=== PATIENT | male | born 1970 | race Caucasian/White ===

== ENCOUNTER 2021-04-18 16:23 | Emergency (ER) | payer OTHER, SELFPAY ==
--- NOTE | ~2021-04-18 | CT_ITS ---
EXAMINATION: CT ABDOMEN AND PELVIS WITH CONTRAST CLINICAL INFORMATION: Abdominal pain with rebound tenderness COMPARISON: None TECHNIQUE: Multidetector volumetric images were obtained from the superior aspect of the liver through the pubic symphysis following administration 100 mL of Omnipaque 350 intravenous contrast. Sagittal and coronal reformatted images were obtained on the technologist's workstation. Oral contrast: No This CT examination was performed using dose optimization techniques as appropriate, variously including the following: *Automated exposure control *Adjustment of mA and/or kV according to patient size (this includes techniques or standardized protocols for targeted exams where dose is matched to indication/reason for exam; i.e. extremities or head) *Use of iterative reconstruction technique DLP: 1072 mGy-cm FINDINGS: LUNG BASES: The visualized lung bases are unremarkable aside from bibasilar atelectasis. LIVER, GALLBLADDER, AND BILIARY TREE: The liver is enlarged measuring 20 cm in greatest cephalocaudad dimension but is normal in shape and attenuation. No focal hepatic lesion or biliary ductal dilatation is present. The gallbladder is unremarkable with no evidence of radiopaque gallstones, gallbladder wall thickening, or obvious pericholecystic inflammatory changes. PANCREAS: Unremarkable. SPLEEN: The spleen is mildly enlarged at 14.7 cm in greatest length A small splenule is seen. ADRENAL GLANDS: Unremarkable. KIDNEYS AND URETERS: The kidneys are normal in size, shape, and attenuation. 2 small benign Bosniak class I renal cysts present at the lower pole the right kidney the largest measuring 1.3 cm. No worrisome renal masses are seen. No hydronephrosis, hydroureter, or calculi seen. No perinephric stranding. BLADDER: Unremarkable. GASTROINTESTINAL TRACT: There are some subtle mild inflammatory changes are present adjacent to the cecum centered around a rounded/ovoid fat density with enhancing rim. This may represent appendagitis or possibly diverticulitis without visible diverticula (favor the former). In any event, there is no free air or drainable fluid collections seen. The small and large bowel are otherwise unremarkable. The appendix is well seen and entirely unremarkable. ABDOMINAL WALL: No significant hernia is appreciated. LYMPH NODES: No lymphadenopathy. VASCULAR: Unremarkable. PELVIC VISCERA: Prostate and seminal vesicles normal. OSSEOUS STRUCTURES: Unremarkable. Some minimal degenerative changes are present. CT/CT abdomen pelvis w con IMPRESSION: Pericecal findings suggestive of epiploic appendagitis as described above. Incidentally noted is hepatosplenomegaly Fleischner guidelines were followed.
[2021-04-18 16:30] VITALS: BP 131/64; PULSE 71; RESP 18; TEMP 36.6; O2SAT 95; BMI 38.2
--- NOTE | 2021-04-18 17:25 | ED_ITS ---
HPI - Abdominal Pain General Chief Complaint: Abdominal Pain Stated Complaint: sharp abd pain Time Seen by Provider: 04/18/21 19:15 Source: patient Mode of arrival: ambulatory Limitations: no limitations History of Present Illness HPI narrative: 50-year-old male presents with right lower abdominal pain that started over 24 hours ago. States that he has had 1 episode of diarrhea. Does not report any fevers or chills but states that he cannot get comfortable. No prior history of abdominal surgery. MD elicited complaint: abdominal pain Pertinent past history: none Onset (ago): day(s) (1) Pain Consistency: constant Location: RLQ Severity: severe Pain scale (0-10): 9 Quality: aching Radiation: other (Umbilical) Migration to: periumbilical Exacerbating factors: movement Relieving factors: nothing Associated symptoms: diarrhea Related Data Previous Rx's Medication Instructions Recorded ibuprofen 600 mg tablet 600 mg PO Q6H PRN #90 tab 04/18/21 Allergies Allergy/AdvReac Type Severity Reaction Status Date / Time No Known Allergies Allergy Unknown unknown Unverified 10/28/19 15:44 [NO KNOWN ALLERGIES] Review of Systems Review of Systems Constitutional: No Weight loss, No Fever, No Chills, No Night Sweats, No Fati osito, No Malaise ENT/Mouth: No Hearing loss, No Ear Pain, No Nasal Congestion, No Sinus Pain, No Hoarseness, No sore throat, No Rhinorrhea, No Swallowing Difficulty Eyes: No Eye Pain, No Swelling, No Redness, No Foreign Body, No Discharge, No Vision Changes Cardiovascular: No Chest Pain, No SOB, No Dyspnea on Exertion, No Orthopnea, No Edema, No Palpitations Respiratory: No Cough, No Sputum, No Wheezing, No Smoke Exposure, No Dyspnea Gastrointestinal: No Nausea, no Vomiting, positive Diarrhea, positive abdominal Pain, No Hematochezia, No Melena Genitourinary: no irregular bleeding, No Dysuria, No Urinary Frequency, No Hematuria, No Urinary Incontinence, No Urgency, No Flank Pain, No Urinary Flow Changes, No Hesitancy Musculoskeletal: No joint pain, No Myalgias, No Joint Swelling Skin: No Skin Lesions, No rash Neuro: No Weakness, No Numbness, No Paresthesias, No Loss of Consciousness, No Dizziness, No Headache Psych: No Anxiety/Panic, No Depression, No SI/HI/AH/VH, No Social Issues Heme/Lymph: No Bruising, No Bleeding,No Lymphadenopathy Endocrine: No Polyuria, No Polydipsia, No Temperature Intolerance Yes all other systems are reviewed and are negative [facility] Past Medical History Attestation statement: The following information was validated with the patient. Source: old records reviewed Social History Social History Advance Directives: No Advance Directives Information Provided: No Physical Exam ED Vital Signs: Vital Signs - 24 hr 04/18/21 16:30 Temperature 98 F Pulse Rate 71 Respiratory Rate 18 Blood Pressure 131/64 Pulse Oximetry 95 BMI result Body Mass Index 38.2 Appearance: Alert. Oriented X3. No acute distress. Eyes: Pupils equal, round and reactive to light. EOMI. Sclera nonicteric. ENT: Pharynx normal. Moist mucous membranes. Neck: Normal inspection. Neck supple. No JVD. CVS: Normal heart rate and rhythm. Pulses normal. Respiratory: No respiratory distress. Breath sounds normal. Abdomen: Soft and positive McBurney, positive psoas and positive rebound tenderness. Morbid obesity Skin: Skin warm and dry. Normal skin color. Normal skin turgor. Extremities: No lower extremity edema. Moves all extremities against resistance. Gait well-balanced well coordinated. Neuro: No motor deficit. No sensory deficit. Cranial nerves 2-12 intact. Course Course Course Narrative: 50-year-old male presents with 24 hours of right lower abdominal pain. Patient is afebrile, appears nontoxic. Physical exam indicates positive McBurney, positive psoas and positive rebound tenderness. 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 Patient to CT scan prior to lab values, labs and cultures ordered. Pain management with morphine, Zofran and a L of fluid at this time. 17:[address] scan at this time. 18:52 CT scan indicates pericecal finding suggestive of epiploic appendagitis, no indication of appendicitis at this time. Detailed discussion with patient regarding findings. Plan of care is to discharge home with ibuprofen. Patient verbalized understanding of and agrees to plan of care to discharge home. Verbalized understanding of signs and symptoms indicating need for emergent intervention MDM - Abdominal Pain Differential Diagnosis Differential diagnosis: Likely abdominal pain, acute appendicitis, calculus of kidney, constipation, diverticulitis, mesenteric ischemia, pancreatitis, renal colic and small bowel obstruction Medical Records Attestation: I reviewed the patient's medical records. Lab Data Attestation: I reviewed the patient's lab results. Result diagrams: 04/18/21 17:37 04/18/21 17:36 Labs: Lab Results 04/18/21 04/18/21 04/18/21 Range/Units 17:36 17:36 17:36 WBC (4.8-10.8) X10*3/uL RBC (4.60-5.80) X10*6/uL Hgb (14.0-18.0) g/dl Hct (42.0-52.0) % MCV (80.0-98.0) fL MCH (27.0-33.0) pg MCHC (31.0-36.0) g/dl RDW (11.0-16.0) % Plt Count (160-400) X10*3/uL MPV (9.4-12.4) fL Immature Gran % (Auto) (0.0-0.4) % Neut % (Auto) (45-73) % Lymph % (Auto) (20-40) % [place] % (Auto) (2-11) % Eos % (Auto) (0-4) % Baso % (Auto) (0-2) % Lymph # (Auto) (1.2-4.9) X10*3/uL [place] # (Auto) (0.1-1.2) X10*3/uL Eos # (Auto) (0.0-0.4) X10*3/uL Baso # (Auto) (0.0-0.2) X10*3/uL Abs Immat Gran (auto) (0.00-0.03) X10*3/uL Absolute Neuts (auto) (2.0-8.3) x10*3/uL Absolute Nucleated RBC (0.0-0.012) X10*3/uL Nucleated RBC % (auto) (0.0-0.2) /100WBC PT 12.3 (9.9-13.0) SEC INR 1.1 (0.9-1.1) APTT 37.1 (24.1-38.0) SEC Sodium 144 (135-145) mmol/L Potassium 3.7 (3.3-5.1) mmol/L Chloride 108 (96-108) mmol/L Carbon Dioxide 26 (22-29) mmol/L Anion Gap 14 (12-20) BUN 18 H (9-16) mg/dL Creatinine 1.23 (0.5-1.4) mg/dL Estim Creat Clear Calc 98.2 Estimated GFR > 60 Random Glucose 112 (60-115) mg/dL Lactic Acid (0.5-2.0) mmol/L Calcium 8.9 (8.4-10.2) mg/dL Total Bilirubin 0.9 (0.0-1.0) mg/dL Direct Bilirubin 0.3 (0.0-0.5) mg/dL AST 15 (5-37) U/L ALT 19 (0-40) U/L Alkaline Phosphatase 91 (39-117) U/L Troponin I High Sens 7.2 (<3.5-35.0) ng/L Total Protein 6.9 (6.5-8.0) g/dL Albumin 4.2 (3.5-5.0) g/dL Lipase 13 (8-78) U/L 04/18/21 04/18/21 Range/Units 17:37 17:37 WBC 7.4 (4.8-10.8) X10*3/uL RBC 4.89 (4.60-5.80) X10*6/uL Hgb 13.6 L (14.0-18.0) g/dl Hct 42.5 (42.0-52.0) % MCV 86.9 (80.0-98.0) fL MCH 27.8 (27.0-33.0) pg MCHC 32.0 (31.0-36.0) g/dl RDW 13.3 (11.0-16.0) % Plt Count 224 (160-400) X10*3/uL MPV 10.5 (9.4-12.4) fL Immature Gran % (Auto) 0.3 (0.0-0.4) % Neut % (Auto) 61.3 (45-73) % Lymph % (Auto) 23.5 (20-40) % [place] % (Auto) 10.7 (2-11) % Eos % (Auto) 2.6 (0-4) % Baso % (Auto) 1.6 (0-2) % Lymph # (Auto) 1.7 (1.2-4.9) X10*3/uL [place] # (Auto) 0.8 (0.1-1.2) X10*3/uL Eos # (Auto) 0.2 (0.0-0.4) X10*3/uL Baso # (Auto) 0.1 (0.0-0.2) X10*3/uL Abs Immat Gran (auto) 0.02 (0.00-0.03) X10*3/uL Absolute Neuts (auto) 4.5 (2.0-8.3) x10*3/uL Absolute Nucleated RBC 0.000 (0.0-0.012) X10*3/uL Nucleated RBC % (auto) 0.0 (0.0-0.2) /100WBC PT (9.9-13.0) SEC INR (0.9-1.1) APTT (24.1-38.0) SEC Sodium (135-145) mmol/L Potassium (3.3-5.1) mmol/L Chloride (96-108) mmol/L Carbon Dioxide (22-29) mmol/L Anion Gap (12-20) BUN (9-16) mg/dL Creatinine (0.5-1.4) mg/dL Estim Creat Clear Calc Estimated GFR Random Glucose (60-115) mg/dL Lactic Acid 1.3 (0.5-2.0) mmol/L Calcium (8.4-10.2) mg/dL Total Bilirubin (0.0-1.0) mg/dL Direct Bilirubin (0.0-0.5) mg/dL AST (5-37) U/L ALT (0-40) U/L Alkaline Phosphatase (39-117) U/L Troponin I High Sens (<3.5-35.0) ng/L Total Protein (6.5-8.0) g/dL Albumin (3.5-5.0) g/dL Lipase (8-78) U/L Imaging Data CT scan - abdomen: Attestation: I personally reviewed and interpreted this imaging study as follows: Radiologist's impression: FINDINGS: LUNG BASES: The visualized lung bases are unremarkable aside from bibasilar atelectasis.? LIVER, GALLBLADDER, AND BILIARY TREE: The liver is enlarged measuring 20 cm in greatest cephalocaudad dimension but is normal in shape? and attenuation. No focal hepatic lesion or biliary ductal dilatation is present. The gallbladder is unremarkable with no evidence of radiopaque gallstones, gallbladder wall thickening, or obvious pericholecystic inflammatory changes.? PANCREAS: Unremarkable.? SPLEEN: The spleen is mildly enlarged at 14.7 cm in greatest length A small splenule is seen. ADRENAL GLANDS: Unremarkable.? KIDNEYS AND URETERS: The kidneys are normal in size, shape, and attenuation. 2 small benign Bosniak class I renal cysts present at the lower pole the right kidney the largest measuring 1.3 cm. No worrisome renal masses are seen. No hydronephrosis, hydroureter, or calculi seen. No perinephric stranding. ? BLADDER: Unremarkable.? GASTROINTESTINAL TRACT: There are some subtle mild inflammatory changes are present adjacent to the cecum centered around a rounded/ovoid fat density with enhancing rim. This may represent appendagitis or possibly diverticulitis without visible diverticula (favor the former). In any event, there is no free air or drainable fluid collections seen. The small and large bowel are otherwise unremarkable. The appendix is well seen and entirely unremarkable.? ABDOMINAL WALL: No significant hernia is appreciated.? LYMPH NODES: No lymphadenopathy. VASCULAR: Unremarkable. PELVIC VISCERA: Prostate and seminal vesicles normal.? OSSEOUS STRUCTURES: Unremarkable. Some minimal degenerative changes are present. CT/CT abdomen pelvis w con IMPRESSION: Pericecal findings suggestive of epiploic appendagitis as described above.? ? Incidentally noted is hepatosplenomegaly ? Fleischner guidelines were followed. ECG Data Attestation: I personally reviewed and interpreted this ECG as follows: ECG interpretation date: 04/18/21 ECG interpretation time: 18:02 Prior ECG tracings: available for review Interpretation: Vent. rate 59 BPM NV interval 200 ms QRS duration 90 ms QT/QTc 414/409 ms P-R-T axes 5 11 35 Sinus bradycardia Otherwise normal ECG No previous ECGs available Discharge Plan Discharge Clinical Impression: Epiploic appendagitis, Abdominal pain Patient Disposition: Home, Self-Care Instructions: Abdominal Pain (ED) Additional Instructions: You were evaluated for abdominal pain. CT scan of abdomen and pelvis with contrast indicates epiploic appendagitis. Please rest, drink plenty of fluids, and use Motrin 600 mg every 6 hours and Tylenol 650 mg every 6 hours as needed for pain management. If pain worsens, please return to the emergency department for evaluation. This could also be an early appendicitis. Your EKG is normal sinus rhythm. Your lab values are within normal limits. Follow-up with primary care physician this week. Thank you for choosing this emergency department for evaluation. Please follow-up with primary care physician as needed. Return to the emergency department for any new, concerning, or worsening symptoms. Prescriptions: New ibuprofen 600 mg tablet 600 mg PO Q6H PRN (Reason: fever or pain) Qty: 90 0RF Stand Alone Forms: Work/School Release
--- NOTE | 2021-04-18 17:26 | ECG_ITS ---
Test Reason : ABDOMINAL PAIN Blood Pressure : / mmHG Vent. Rate : 059 BPM Atrial Rate : 059 BPM P-R Int : 200 ms QRS Dur : 090 ms QT Int : 414 ms P-R-T Axes : 005 011 035 degrees QTc Int : 409 ms Sinus bradycardia Otherwise normal ECG No previous ECGs available Referred By: Yulia Garces Electronically Signed By:SARAH GOMEZ MD
[2021-04-18 17:43] LABS: MANUAL DIFF FLAG NO
[2021-04-18] MEDS: Morphine Sulfate 4 MG/ML CARTRIDGE IVPUSH (17:46)
[2021-04-18] MEDS: 0.9 % Sodium Chloride 1,000 ML 999 ML IVCONT (17:46)
[2021-04-18] MEDS: ondansetron HCL 4 MG/2 ML VIAL IVPUSH (17:46)
[2021-04-18] MEDS: iohexoL 350 MG/ML 100 ML INFUS..BTL IV (17:51)
[2021-04-18 17:56] LABS: INTERNATIONAL NORM RATIO 1.1 (0.9-1.1); Prothrombin Time 12.3 SEC (9.9-13.0)
[2021-04-18 17:58] LABS: Lactic Acid 1.3 mmol/L (0.5-2.0)
[2021-04-18 17:59] LABS: Partial Thromboplastin Time 37.1 SEC (24.1-38.0)
[2021-04-18 18:02] LABS: Basophils Absolute Auto 0.1 X10*3/uL (0.0-0.2); Basophils Percent Auto 1.6 % (0-2); Eosinophils Absolute Auto 0.2 X10*3/uL (0.0-0.4); Eosinophils Percent Auto 2.6 % (0-4); Hematocrit 42.5 % (42.0-52.0); Hemoglobin 13.6 g/dl (14.0-18.0); Imm Gran Abs Auto 0.02 X10*3/uL (0.00-0.03); Imm Gran Pct Auto 0.3 % (0.0-0.4); Lymphocytes Absolute Auto 1.7 X10*3/uL (1.2-4.9); Lymphocytes Percent Auto 23.5 % (20-40); Mean Corpuscular Hemoglobin 27.8 pg (27.0-33.0); Mean Corpuscular Volume 86.9 fL (80.0-98.0); Mean Platelet Volume 10.5 fL (9.4-12.4); Monocytes Absolute Auto 0.8 X10*3/uL (0.1-1.2); Monocytes Percent Auto 10.7 % (2-11); Neutrophils Absolute Auto 4.5 x10*3/uL (2.0-8.3); Neutrophils Percent Auto 61.3 % (45-73); Platelet Count 224 X10*3/uL (160-400); Red Blood Count 4.89 X10*6/uL (4.60-5.80); Red Cell Distribution Width 13.3 % (11.0-16.0); White Blood Count 7.4 X10*3/uL (4.8-10.8)
[2021-04-18 18:03] LABS: Alanine Aminotransferase 19 U/L (0-40); Albumin Level 4.2 g/dL (3.5-5.0); Alkaline Phosphatase 91 U/L (39-117); Anion Gap 14 (12-20); Aspartate Amino Transferase 15 U/L (5-37); Bilirubin Direct 0.3 mg/dL (0.0-0.5); Bilirubin Total 0.9 mg/dL (0.0-1.0); Blood Urea Nitrogen 18 mg/dL (9-16); Calcium 8.9 mg/dL (8.4-10.2); Carbon Dioxide 26 mmol/L (22-29); Chloride 108 mmol/L (96-108); Creatinine Clr Calc Pharmacy 98.2; Estimated Glomerular Filt Rate > 60; Glucose Random 112 mg/dL (60-115); Lipase 13 U/L (8-78); Potassium 3.7 mmol/L (3.3-5.1); Sodium 144 mmol/L (135-145); Total Protein 6.9 g/dL (6.5-8.0)
[2021-04-18 18:06] LABS: Troponin-I High Sensitivity 7.2 ng/L (<3.5-35.0)
== END 2021-04-18 19:32 | disposition home or self-care (01) ==
PROVIDERS: Nurse Practitioner Family; Emergency Provider Emergency Medicine Emergency Medical Services
DX: R10.31 Right lower quadrant pain (principal); K63.89 Other specified diseases of intestine; Z79.899 Other long term (current) drug therapy
CPT/HCPCS: 36415; 74177; 80048; 80076; 83605; 83690; 84484; 85025; 85610; 85730; 87040; 93005; 96361; 96374; 96375; 99284; J2270; J2405; Q9967

== ENCOUNTER 2022-10-07 22:15 | Emergency (ER) | payer OTHER, SELFPAY ==
--- NOTE | ~2022-10-07 | CT_ITS ---
EXAMINATION: CT ABDOMEN AND PELVIS WITH CONTRAST CLINICAL INFORMATION: Abdominal pain. COMPARISON: 04/18/2021 TECHNIQUE: Multidetector volumetric images were obtained from the superior aspect of the liver through the pubic symphysis following administration 85 mL of Omnipaque 350 intravenous contrast. Sagittal and coronal reformatted images were obtained on the technologist's workstation. Oral contrast: No This CT examination was performed using dose optimization techniques as appropriate, variously including the following: *Automated exposure control *Adjustment of mA and/or kV according to patient size (this includes techniques or standardized protocols for targeted exams where dose is matched to indication/reason for exam; i.e. extremities or head) *Use of iterative reconstruction technique DLP: 1072 mGy-cm FINDINGS: LUNG BASES: The visualized lung bases are unremarkable. LIVER, GALLBLADDER, AND BILIARY TREE: The liver is normal in size, shape, and attenuation. No focal hepatic lesion or biliary ductal dilatation is present. Gallbladder is contracted. No gallstone. No inflammation of the gallbladder. PANCREAS: Unremarkable. SPLEEN: Unremarkable. ADRENAL GLANDS: Unremarkable. KIDNEYS AND URETERS: The kidneys are normal in size, shape, and attenuation. No hydronephrosis, hydroureter, or calculi seen. No perinephric stranding. BLADDER: Unremarkable. GASTROINTESTINAL TRACT/ MESENTERY: There is subtle stranding in the mesenteric fat at the anterior abdomen with level the umbilicus. This is new since CAT scan 04/28/2021. Sagittal image 64/153 series the. This is nonspecific. Could be related to a mesenteritis with possible mesenteric fat infarct. This does lie adjacent to a small bowel loop at the anterior abdomen. This bowel loop is of normal caliber with no abnormal bowel wall thickening. A focal enterocolitis though not excluded. Inflammatory changes of the mesentery seen adjacent to the right colon on prior CAT scan 04/28/2021 has resolved. Large bowel loops are normal. Moderate volume of scattered stool in the colon. The appendix is not visualized. ABDOMINAL WALL: Small fat-containing bilateral Hernia. Small fat-containing umbilical hernia. LYMPH NODES: Normal. VASCULAR: Unremarkable. PELVIC VISCERA: Unremarkable. OSSEOUS STRUCTURES: Mild degenerative spondylosis spine. Vacuum disc normal present at L5-S1 CT/CT abdomen pelvis w IV con IMPRESSION: There is subtle stranding in the mesenteric fat at the anterior abdomen. This is new since CAT scan 04/28/2021. This is nonspecific. Could be related to a mesenteritis with possible mesenteric fat infarct. This does lie adjacent to a small bowel loop at the anterior abdomen. This bowel loop is of normal caliber with no abnormal bowel wall thickening. A focal enterocolitis though not excluded. Inflammatory changes of the mesentery seen on prior CAT scan 04/28/2021 has resolved. Fleischner guidelines were followed.
[2022-10-07 22:30] VITALS: BP 137/71; PULSE 64; RESP 20; TEMP 36.8; O2SAT 94; BMI 41.6
[2022-10-07 22:51] LABS: MANUAL DIFF FLAG NO
[2022-10-07 22:52] LABS: Basophils Absolute Auto 0.1 X10*3/uL (0.0-0.2); Basophils Percent Auto 1.5 % (0-2); Eosinophils Absolute Auto 0.2 X10*3/uL (0.0-0.4); Eosinophils Percent Auto 2.4 % (0-4); Hematocrit 40.4 % (42.0-52.0); Hemoglobin 13.1 g/dl (14.0-18.0); Imm Gran Abs Auto 0.02 X10*3/uL (0.00-0.03); Imm Gran Pct Auto 0.2 % (0.0-0.4); Lymphocytes Absolute Auto 1.9 X10*3/uL (1.2-4.9); Lymphocytes Percent Auto 23.2 % (20-40); Mean Corpuscular HGB Conc 32.4 g/dl (31.0-36.0); Mean Corpuscular Hemoglobin 27.4 pg (27.0-33.0); Mean Corpuscular Volume 84.5 fL (80.0-98.0); Mean Platelet Volume 10.3 fL (9.4-12.4); Monocytes Absolute Auto 0.9 X10*3/uL (0.1-1.2); Monocytes Percent Auto 10.4 % (2-11); Neutrophils Absolute Auto 5.1 x10*3/uL (2.0-8.3); Neutrophils Percent Auto 62.3 % (45-73); Platelet Count 198 X10*3/uL (160-400); Red Blood Count 4.78 X10*6/uL (4.60-5.80); Red Cell Distribution Width 14.1 % (11.0-16.0); White Blood Count 8.2 X10*3/uL (4.8-10.8)
[2022-10-07 23:06] LABS: Alanine Aminotransferase 18 U/L (0-40); Alkaline Phosphatase 91 U/L (39-117); Anion Gap 13 (12-20); Aspartate Amino Transferase 14 U/L (5-37); Bilirubin Direct 0.2 mg/dL (0.0-0.5); Bilirubin Total 0.5 mg/dL (0.0-1.0); Blood Urea Nitrogen 16 mg/dL (9-16); Carbon Dioxide 25 mmol/L (22-29); Chloride 109 mmol/L (96-108); Creatinine Clr Calc Pharmacy 126.6; Estimated Glomerular Filt Rate > 60; Glucose Random 108 mg/dL (60-115); Lipase 19 U/L (8-78); Potassium 3.7 mmol/L (3.3-5.1); Sodium 143 mmol/L (135-145); Total Protein 7.2 g/dL (6.5-8.0)
--- NOTE | 2022-10-07 23:29 | ED_ITS ---
HPI - General Adult General Chief complaint: Abdominal Pain Stated complaint: abdominal pain Time Seen by Provider: 10/07/22 23:14 Source: patient, family () and RN notes reviewed Mode of arrival: ambulatory Limitations: no limitations History of Present Illness HPI narrative: 52-year-old male presents for evaluation of abdominal pain. Patient reports he 1st felt the pain Kashif morning when trying to get out of bed, 3 days ago. The pain seemed to be in the left lower abdomen at that time Since then he has had worsening pain that appears to be rising up into his mid abdomen Patient states the pain is now 10/10 He has pain in his mid abdomen with bowel movements but no rectal pain He does not feel constipated Denies any nausea, vomiting, diarrhea Patient reports a history of umbilical hernia repair but no other abdominal surgeries Related Data Previous Rx's Medication Instructions Recorded ibuprofen 600 mg tablet 600 mg PO Q6H PRN fever or pain 04/18/21 #90 tabs oxycodone 5 mg tablet 5 mg PO Q6H PRN severe pain (scale 10/08/22 score 7-10) #14 tabs Allergies Allergy/AdvReac Type Severity Reaction Status Date / Time No Known Allergies Allergy Unknown unknown Verified 10/07/22 22:35 [NO KNOWN ALLERGIES] Review of Systems Constitutional: Constitutional: Denies chills, Denies fatigue and Denies fever(s) Cardiovascular: Cardiovascular: Denies chest pain Gastrointestinal: Gastrointestinal: Reports abdominal pain, Denies hematochezia, Denies constipation, Denies nausea and Denies vomiting Musculoskeletal: Musculoskeletal: Denies back pain Endocrine: Endocrine: Denies fatigue PMFSH Social History Social History Advance Directives: No Advance Directives Information Provided: Yes Physical Exam ED Vital Signs: Vital Signs - 24 hr 10/07/22 22:30 10/08/22 00:15 Temperature 98.2 F 98.0 F Pulse Rate 64 59 Respiratory Rate 20 18 Blood Pressure 137/71 143/81 H Pulse Oximetry 94 96 Oxygen Delivery Method Room Air Room Air BMI result Body Mass Index 41.6 Const General: healthy appearing, comfortable, no acute distress, alert and awake Nutritional Appearance: well nourished Orientation/consciousness: patient oriented x3 HENMT Head: Yes normocephalic and Yes atraumatic Eyes Eyelids: Yes eyelids normal Conjunctivae: conjunctivae normal Sclerae: sclerae normal Corneas: corneas normal Pupils: Equal, round and reactive pupils present EOM: EOMs intact bilaterally Neck Neck: Yes full ROM Resp Effort & Inspection: normal respiratory effort, able to speak in complete se ntences and not labored Cardio Rate: regular rate Rhythm: regular rhythm GI Palpation (GI): Soft to palpation, not firm, Tenderness to palpation present (GI) in the RLQ and periumbilically; not in the LLQ, not in the LUQ and not in the RUQ, Guarding due to palpation present (GI) other (periumbilical) and not rigid Skin General skin exam: no rashes or lesions noted and elasticity normal Neuro General: patient oriented x3 Cranial nerves: Yes Equal, round and reactive pupils present and Yes Bilaterally intact EOM present Cognition (Neuro): normal cognition Extrem Other: Moving all extremities well without any obvious deformities Course Reevaluation(s) Reevaluation #1: Discussed patient's CT scan results with him including the mesentery iritis and possible mesenteric fat infarct. The patient is to for discharge with symptomatic care. He will follow-up with surgery as an outpatient Time: 00:49 Medications Administered Discontinued Medications Generic Name Dose Route Start Last Admin Trade Name Freq PRN Reason Stop Dose Admin Sodium Chloride 1,000 mls @ 999 mls/hr 10/07/22 23:30 10/07/22 23:53 Ns IV 10/08/22 00:30 999 mls/hr .Q1H1M MARIELOS Administration Iohexol 85 ml 10/07/22 23:58 10/07/22 23:59 Iohexol 350 Mg/Ml 100 Ml Infus..Btl IV 10/07/22 23:59 85 ml ONCE ONE Administration Morphine Sulfate 4 mg 10/07/22 23:24 10/07/22 23:54 Morphine Sulfate 4 Mg/Ml Cartridge IVPUSH 10/07/22 23:25 4 mg ONCE ONE Administration Protocol Ondansetron HCl 4 mg 10/07/22 23:24 10/07/22 23:53 Ondansetron Hcl 4 Mg/2 Ml Vial IVPUSH 10/07/22 23:25 Not Given ONCE ONE Medical Decision Making Medical Decision Making MDM Narrative: 52-year-old male presents for evaluation of abdominal pain. His labs are reassuring. However he is quite tender on exam in guarding to palpation. Will get a CT scan of the abdomen pelvis to evaluate for internal/low pathology including for your/perforation. Differential Diagnosis Differential Diagnoses: The differential diagnosis associated with the presentation includes Umbilical hernia Inguinal hernia Acute appendicitis Ruptured appendicitis Constipation Bowel obstruction Ileus Pancreatitis Admission/Observation Consideration of admission/observation: Escalation of care including admission/observation considered Patient presenting with severe abdominal pain with concern for surgical pathology. CT scan ultimately showed no significant acute findings warranting admission Lab Data MDM Lab Attestation statement: I reviewed the patient's lab results. No leukocytosis, mild anemia with a hemoglobin of 13.1 which is consistent his recent baseline. Patient has a chloride of 109, just above normal, but otherwise no electrolyte abnormalities normal renal function 10/07/22 22:44 10/07/22 22:44 Labs: Lab Results 10/07/22 10/07/22 Range/Units 22:44 22:44 WBC 8.2 (4.8-10.8) X10*3/uL RBC 4.78 (4.60-5.80) X10*6/uL Hgb 13.1 L (14.0-18.0) g/dl Hct 40.4 L (42.0-52.0) % MCV 84.5 (80.0-98.0) fL MCH 27.4 (27.0-33.0) pg MCHC 32.4 (31.0-36.0) g/dl RDW 14.1 (11.0-16.0) % Plt Count 198 (160-400) X10*3/uL MPV 10.3 (9.4-12.4) fL Immature Gran % (Auto) 0.2 (0.0-0.4) % Neut % (Auto) 62.3 (45-73) % Lymph % (Auto) 23.2 (20-40) % [place] % (Auto) 10.4 (2-11) % Eos % (Auto) 2.4 (0-4) % Baso % (Auto) 1.5 (0-2) % Lymph # (Auto) 1.9 (1.2-4.9) X10*3/uL [place] # (Auto) 0.9 (0.1-1.2) X10*3/uL Eos # (Auto) 0.2 (0.0-0.4) X10*3/uL Baso # (Auto) 0.1 (0.0-0.2) X10*3/uL Abs Immat Gran (auto) 0.02 (0.00-0.03) X10*3/uL Absolute Neuts (auto) 5.1 (2.0-8.3) x10*3/uL Absolute Nucleated RBC 0.000 (0.0-0.012) X10*3/uL Nucleated RBC % (auto) 0.0 (0.0-0.2) /100WBC Sodium 143 (135-145) mmol/L Potassium 3.7 (3.3-5.1) mmol/L Chloride 109 H (96-108) mmol/L Carbon Dioxide 25 (22-29) mmol/L Anion Gap 13 (12-20) BUN 16 (9-16) mg/dL Creatinine 0.92 (0.5-1.4) mg/dL Estim Creat Clear Calc 126.6 Estimated GFR > 60 Random Glucose 108 (60-115) mg/dL Calcium 9.0 (8.4-10.2) mg/dL Total Bilirubin 0.5 (0.0-1.0) mg/dL Direct Bilirubin 0.2 (0.0-0.5) mg/dL AST 14 (5-37) U/L ALT 18 (0-40) U/L Alkaline Phosphatase 91 (39-117) U/L Total Protein 7.2 (6.5-8.0) g/dL Albumin 4.0 (3.5-5.0) g/dL Lipase 19 (8-78) U/L Radiology Impression Discussion of test interpretation with radiology: I have reviewed the radiologist's reading. Radiologist Impression: Subtle stranding in the mesenteric fat at the anterior abdomen. This is new since April of 2021. This could be related to mesenteritis with possible mesenteric fat infarct. 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 There is some inflammation in the mesenteric fatty tissue was in your abdominal pain. You may continue to use Advil or Tylenol as needed for pain You may use oxycodone for more severe, breakthrough pain Return for new or worsening symptoms, especially if you have severe, intractable abdominal pain that does not improve, if you are unable to use the bathroom or passed gas or if you develop a fever He may follow-up with General surgery Dr. Philip as an outpatient Prescriptions: New oxycodone 5 mg tablet 5 mg PO Q6H PRN (Reason: severe pain (scale score 7-10)) Qty: 14 0RF Rx Instructions: Partial Fill upon patient request. No Action ibuprofen 600 mg tablet 600 mg PO Q6H PRN (Reason: fever or pain) Qty: 90 0RF
[2022-10-07] MEDS: 0.9 % Sodium Chloride 1,000 ML 999 ML IV (23:53)
[2022-10-07] MEDS: Morphine Sulfate 4 MG/ML CARTRIDGE IVPUSH (23:54)
[2022-10-07] MEDS: iohexoL 350 MG/ML 100 ML INFUS..BTL 85 ML IV (23:59)
[2022-10-08 00:15] VITALS: BP 143/81; PULSE 59; RESP 18; TEMP 36.7; O2SAT 96
== END 2022-10-08 01:44 | disposition home or self-care (01) ==
PROVIDERS: Emergency Provider Emergency Medicine
DX: K65.4 Sclerosing mesenteritis (principal); R10.30 Lower abdominal pain, unspecified; Z79.899 Other long term (current) drug therapy
CPT/HCPCS: 36415; 74177; 80048; 80076; 83690; 85025; 96374; 99284; J2270; Q9967

== ENCOUNTER 2023-02-21 17:20 | Emergency (ER) | payer OTHER, SELFPAY ==
[2023-02-21 17:29] VITALS: BP 118/76; PULSE 66; RESP 16; TEMP 36.9; O2SAT 95; BMI 43.3
--- NOTE | 2023-02-21 17:29 | ED_ITS ---
HPI - Ear Problem General Chief complaint: Wound/Laceration Stated complaint: 3-4 sm/ large tumor lumps in R ear? Time Seen by Provider: 02/21/23 17:38 Source: patient Mode of arrival: ambulatory Limitations: no limitations History of Present Illness HPI Narrative: Patient is a 52-year-old male who presents emergency department for evaluation of painful lumps to occiput, multiple spreading across scalp. Denies any active drainage. Denies headache/neck pain/neck stiffness. Denies ear pain. Related Data Previous Rx's Medication Instructions Recorded ibuprofen 600 mg tablet 600 mg PO Q6H PRN fever or pain 04/18/21 #90 tabs oxycodone 5 mg tablet 5 mg PO Q6H PRN severe pain (scale 10/08/22 score 7-10) #14 tabs cephalexin 500 mg capsule 500 mg PO QID #28 caps 02/21/23 doxycycline hyclate 100 mg capsule 100 mg PO BID #14 caps 02/21/23 naproxen 500 mg tablet 500 mg PO BID PRN pain #10 tabs 02/21/23 Allergies Allergy/AdvReac Type Severity Reaction Status Date / Time No Known Allergies Allergy Unknown unknown Verified 10/07/22 22:35 [NO KNOWN ALLERGIES] Review of Systems 2 Review of Systems: Yes all other systems are reviewed and are negative PMFSH Past Medical History Attestation statement: The following information was validated with the patient. Source: old records reviewed Onset Date is defined in the Problem List Problems that require an onset date and time if occurred within 24 hrs of arrival to the ED Aortic Dissection and Rupture; Neurologic impairment; Cardiopulmonary Arrest; Endotracheal Intubation; Insertion or Replacement of Mechanical Circulatory Assist Device Physical Exam 2 Vital Signs: Appearance: Alert.?Oriented to person, place and time. No acute distress.?Normal affect. Eyes: Pupils equal, round and reactive to light.? ENT: Pharynx normal.??TM normal bilaterally. External ear canals within normal limits. Neck: Normal inspection.? Neck supple.??No cervical lymphadenopathy. CVS: Heart sounds normal. Normal heart rate and rhythm.? Pulses normal.?? Respiratory: No respiratory distress.? Lung sounds clear to auscultation bilaterally?? Skin: Skin warm and dry.? Normal skin color.? Lesions to the scalp, flat dry macules to the upper occipital/parietal region. Lower occipital region with tender nodules, non fluctuant. Extremities: No lower extremity edema.? Neuro: Moves all extremities spontaneously. Sensation intact bilaterally. CN II- XII intact. No focal neuro deficits. Ambulates with normal steady gait. Medical Decision Making Medical Decision Making [facility] Narrative: Patient is a 52-year-old male who presents emergency department for evaluation of painful lumps to the scalp as per HPI. Upon physical examination appears most consistent with a folliculitis, not consistent with any fluctuance or abscess that would be amenable to draining. There is no vesicular nature to this, at this time have a lower suspicion for herpes zoster, examination of the ears unremarkable not consistent with Carloz Franklin. Discussed conservative treatment in addition to course of antibiotics with cephalexin and doxycycline. Advised outpatient follow-up with primary care provider. Discussed worrisome signs and symptoms that would warrant re-evaluation in the emergency department. All questions answered. Differential Diagnosis Differential Diagnoses: The differential diagnosis associated with the presentation includes (See narrative above) Admission/Observation Consideration of admission/observation: Escalation of care including admission/observation considered Prescription Management I considered prescription management with: Antibiotic Discharge Plan Discharge Clinical Impression: Folliculitis Patient Disposition: Home, Self-Care Instructions: Folliculitis (ED) Additional Instructions: Be sure to cleanse your hair/scalp at least once daily with shampoo and water. Thoroughly rinse. If you develop new or worsening symptoms or concerns you may return back to the emergency department. Complete the entire course of antibiotics as prescribed. Follow-up with your primary care provider. Prescriptions: New doxycycline hyclate 100 mg capsule 100 mg PO BID Qty: 14 0RF cephalexin 500 mg capsule 500 mg PO QID Qty: 28 0RF naproxen 500 mg tablet 500 mg PO BID PRN (Reason: pain) Qty: 10 0RF No Action ibuprofen 600 mg tablet 600 mg PO Q6H PRN (Reason: fever or pain) Qty: 90 0RF oxycodone 5 mg tablet 5 mg PO Q6H PRN (Reason: severe pain (scale score 7-10)) Qty: 14 0RF Rx Instructions: Partial Fill upon patient request. Referrals: Vahid Vargas III, MD [Primary Care Provider] - Discharge Date/Time: 02/21/23 17:56
--- NOTE | 2023-02-21 17:54 | PC.NURSE ---
Evaluated by PA, cleared for dc home with prescriptions.
== END 2023-02-21 17:56 | disposition home or self-care (01) ==
PROVIDERS: Emergency Provider Student in an Organized Health Care Education/Training Program; PCP Internal Medicine
DX: L73.9 Follicular disorder, unspecified (principal)
CPT/HCPCS: 99282; 99283

== ENCOUNTER 2023-06-05 08:16 | Outpatient (AMB) | payer OTHER, SELFPAY ==
[2023-06-05 09:30] VITALS: BP 140/90; PULSE 56; TEMP 36.4; O2SAT 97; BMI 43.1
--- NOTE | 2023-06-05 09:30 | MHC.OFFWIV ---
Intake Vital Signs 06/05/23 09:30 Height 5 ft 10.5 in Weight 305 lb BMI 43.1 BP 140/90 H Blood Pressure Location Lt brachial Position Sitting Pulse 56 Pulse Source Pulse Oximeter Temp 97.6 F Temp Source Temporal Artery Scan Pulse Oximetry (%) 97 Oxygen Delivery Method Room Air Intake Visit Reasons: EP fell down stairs home tailbone back pain Intake Note: pt is here today for fell down stairs started yesterday Patient Tobacco Use Status: Never used Tobacco Allergies No Known Allergies [NO KNOWN ALLERGIES] Allergy (Unknown, Verified 06/05/23 09:34) unknown Do you need a note to return to daycare/school/sports/work: Yes HPI HPI Comments History of Present Illness Details 53 y/o male patient who presents to walk in clinic with c/o tail bone pain since yesterday. Pt fell down the stairs yesterday at home. [facility] Social History Patient Tobacco Use Status: Never used Tobacco Review of Systems Const All systems reviewed & are unremarkable except as noted in HPI and below Physical Exam Vital Signs: Last Vital Signs Temp 97.6 F 06/05/23 09:30 Pulse 56 06/05/23 09:30 BP 140/90 H 06/05/23 09:30 Pulse Ox 97 06/05/23 09:30 Oxygen Delivery Method Room Air 06/05/23 09:30 BMI result Body Mass Index 43.1 Const General: comfortable and no acute distress Nutritional Appearance: obese Orientation/consciousness: patient oriented x3 General: Yes no CVA tenderness Back/Spine/Pelvis Back: no CVA tenderness Cervical Spine: cervical ROM normal Thoracic/Lumbar Spine: thoraco-lumbar ROM normal Pelvis: no pain with anterior-posterior compression Sacrum: no erythema, no swelling, tenderness midline and No sacral edema Coccyx: no swelling and Coccyx tenderness present on direct palpation Neuro General: patient oriented x3, gait normal and moves all extremities Psych Speech and movement: Normal speech and movement present Assessment & Plan Assessment & Plan (1) Coccyx pain: Code(s): M53.3 - Sacrococcygeal disorders, not elsewhere classified Plan: - Warm/ice Pads - Use soft cushion when sitting - Avoid sitting down for prolonged time. - Ibuprofen for pain relief. Medications: Discontinued oxycodone Partial Fill upon patient request. Discontinued Reason: Stopped on Transfer 5 mg PO Q6H PRN 14 tabs 0RF severe pain (scale score 7-10) cephalexin Discontinued Reason: Stopped on Transfer 500 mg PO QID 28 caps 0RF doxycycline hyclate Discontinued Reason: Stopped on Transfer 100 mg PO BID 14 caps 0RF naproxen Discontinued Reason: Patient no longer taking 500 mg PO BID PRN 10 tabs 0RF pain Coding Level of Care Code Est Pt Level 3 (35613) Diagnoses Coccyx pain M53.3 Time Spent (min) 15
== END 2023-06-05 11:17 | disposition home or self-care (01) ==
PROVIDERS: PCP Internal Medicine; Visit Provider Nurse Practitioner Family
DX: M53.3 Sacrococcygeal disorders, not elsewhere classified (principal)
CPT/HCPCS: 99213

== ENCOUNTER 2023-08-19 08:41 | Outpatient (AMB) | payer OTHER, SELFPAY ==
[2023-08-19 09:01] VITALS: BP 152/90; PULSE 83; TEMP 36.6; O2SAT 96; BMI 44.3
--- NOTE | 2023-08-19 09:01 | AM.OFFWIN_ITS ---
Intake Vital Signs 08/19/23 09:01 Height 5 ft 10.5 in Weight 313 lb 4 oz BMI 44.3 BP 152/90 H Blood Pressure Location Rt brachial Position Sitting Pulse 83 Pulse Source Pulse Oximeter Temp 97.9 F Temp Source Temporal Artery Scan Pulse Oximetry (%) 96 Oxygen Delivery Method Room Air Intake Visit Reasons: lower back pain since a fall Intake Note: pt is here for low back pain due to fall Patient Tobacco Use Status: Never used Tobacco Allergies No Known Allergies [NO KNOWN ALLERGIES] Allergy (Unknown, Verified 08/19/23 09:01) unknown Do you need a note to return to daycare/school/sports/work: No HPI HPI Comments History of Present Illness Details 53-year-old male presents today complain ing of low back pain after suffering a fall directly on his buttocks while playing with his grandkids. He states he is having pain directly over his lumbar spine but denies any radiating pain in his paraspinous musculature into his buttocks or lower extremities. [facility] Social History Patient Tobacco Use Status: Never used Tobacco Review of Systems Const All systems reviewed & are unremarkable except as noted in HPI and below Eyes Reports no additional complaints ENT Reports no additional complaints Card Reports no additional complaints Resp Reports no additional complaints GI Reports no additional complaints Reports no additional complaints Musc Reports back pain and Reports stiffness Physical Exam Vital Signs: BMI result Body Mass Index 44.3 General: Yes no CVA tenderness Back/Spine/Pelvis Back: no CVA tenderness Thoracic/Lumbar Spine: straight leg raise negative bilaterally, bend over test abnormal and lumbar spinal tenderness at L4 and at L5 Neuro General: Normal light touch and pain sensation Extrem Right lower extremity: normal to inspection Left lower extremity: normal to inspection Results Reviewed Results Reviewed: X-ray of the lumbar spine shows degenerative changes L4-5. No compression fracture noted Assessment & Plan Assessment & Plan (1) Low back pain: Code(s): M54.50 - Low back pain, unspecified Plan Medrol Dosepak and muscle relaxer was ordered. The patient will go to the emergency room if he develops incontinence or weakness in his lower extremities. He has advised not to drive on the mild muscle relaxer. Follow up with his PCP Medications: New cyclobenzaprine 5 mg PO Q12H 10 tabs 0RF methylprednisolone (Medrol (Hi)) PO PER PKG DIR for 6 days 21 ea 0RF Coding Level of Care Code Est Pt Level 4 (03018) Diagnoses Low back pain M54.50
== END 2023-08-19 10:38 | disposition home or self-care (01) ==
PROVIDERS: PCP Internal Medicine; Visit Provider Physician Assistant Medical
DX: M54.50 Low back pain, unspecified (principal)
CPT/HCPCS: 99214

== ENCOUNTER 2023-08-19 09:09 | Outpatient (REF) | payer OTHER, SELFPAY ==
--- NOTE | ~2023-08-19 | XR_ITS ---
EXAMINATION: XR LUMBOSACRAL SPINE CLINICAL INFORMATION: Low back pain COMPARISON: None available. TECHNIQUE: Three views of the lumbosacral spine. FINDINGS: 5 nonrib-bearing lumbar-type vertebral bodies. No acute visible fracture or dislocation. Multilevel degenerative changes disc space narrowing, endplate sclerosis, osteophyte formation, and facet arthropathy. Vertebral body heights and disc spaces are maintained. Posterior elements are intact. Paraspinal soft tissues are unremarkable. Bowel gas is unremarkable. XR/XR lumbar spine 2-3V IMPRESSION: 1. No acute visible fracture or dislocation. 2. Multilevel degenerative changes.
== END 2023-08-19 09:10 | disposition home or self-care (01) ==
LOC: HO.HMGCX 09:09
PROVIDERS: PCP Internal Medicine; Visit Provider Physician Assistant Medical
DX: M54.50 Low back pain, unspecified (principal)
CPT/HCPCS: 72100

== ENCOUNTER 2023-08-21 10:02 | Outpatient (AMB) | payer OTHER, SELFPAY ==
[2023-08-21 10:06] VITALS: BP 128/84; PULSE 76; TEMP 36.9; O2SAT 98; BMI 44.1
--- NOTE | 2023-08-21 10:06 | AM.OFFWIN_ITS ---
Intake Vital Signs 3 08/21/23 10:06 Height 5 ft 10.5 in Weight 312 lb BMI 44.1 BP 128/84 Blood Pressure Location Rt brachial Position Sitting Pulse 76 Pulse Source Pulse Oximeter Temp 98.4 F Temp Source Oral Pulse Oximetry (%) 98 Oxygen Delivery Method Room Air Intake Visit Reasons: EP ?Cyst draining Intake Note: pt here c/o cyst,tailbone. Ruptured Patient Tobacco Use Status: Never used Tobacco Allergies No Known Allergies [NO KNOWN ALLERGIES] Allergy (Unknown, Verified 08/21/23 10:06) unknown Do you need a note to return to daycare/school/sports/work: No PFSH Social History Patient Tobacco Use Status: Never used Tobacco Review of Systems Const All systems reviewed & are unremarkable except as noted in HPI and below Physical Exam Vital Signs: Last Vital Signs Temp 98.4 F 08/21/23 10:06 Pulse 76 08/21/23 10:06 BP 128/84 08/21/23 10:06 Pulse Ox 98 08/21/23 10:06 Oxygen Delivery Method Room Air 08/21/23 10:06 BMI result Body Mass Index 44.1 Const General: no acute distress and poor hygiene (Poor hygiene with foul body odor); No comfortable Nutritional Appearance: obese Orientation/consciousness: patient oriented x3 Skin Lesions: lesion noted (In between Buttocks, medium size Abscess with yellow discharge) Neuro General: patient oriented x3, gait normal and moves all extremities Extrem Upper/lower leg/hip images: 2 1. Medium size Abscess with yellow discharge, Severe body odor Psych Speech and movement: Normal speech and movement present Assessment & Plan Assessment & Plan (1) Folliculitis: Code(s): L73.9 - Follicular disorder, unspecified Plan: Apply warm compress to facilitate Drainage Take Abx as directed Acetaminophen or Ibuprofen for pain relief Keep the area dry and clean F/U with PCP. Medications: New 2 doxycycline hyclate 100 mg PO BID 14 days 28 caps 0RF L73.9 - Follicular disorder, unspecified ibuprofen 800 mg PO Q8H 60 tabs 0RF L73.9 - Follicular disorder, unspecified cephalexin 500 mg PO BID 10 days 20 caps 0RF L73.9 - Follicular disorder, unspecified Coding Level of Care Code Est Pt Level 3 (37192) Diagnoses Folliculitis L73.9 Time Spent (min) 15
== END 2023-08-21 11:05 | disposition home or self-care (01) ==
PROVIDERS: PCP Internal Medicine; Visit Provider Nurse Practitioner Family
DX: L73.9 Follicular disorder, unspecified (principal)
CPT/HCPCS: 99213

== ENCOUNTER → 2023-11-06 07:55 | Outpatient (BNVA) | payer OTHER, SELFPAY | PROVIDERS: PCP Internal Medicine; Visit Provider Physician Assistant | DX: S39.012A Strain of muscle, fascia and tendon of lower back, initial encounter (principal); X50.1XXA Overexertion from prolonged static or awkward postures, initial encounter; R26.89 Other abnormalities of gait and mobility | CPT/HCPCS: 99203 ==

== ENCOUNTER → 2023-11-13 08:51 | Outpatient (BNVA) | payer OTHER, SELFPAY | PROVIDERS: PCP Internal Medicine; Visit Provider Physician Assistant | DX: S39.012D Strain of muscle, fascia and tendon of lower back, subsequent encounter (principal); X50.1XXD Overexertion from prolonged static or awkward postures, subsequent encounter | CPT/HCPCS: 99213 ==

== ENCOUNTER → 2024-04-14 08:23 | Outpatient (BNVA) | payer OTHER, SELFPAY | PROVIDERS: PCP Internal Medicine; Visit Provider Internal Medicine | DX: S63.502A Unspecified sprain of left wrist, initial encounter (principal); S80.02XA Contusion of left knee, initial encounter; S80.212A Abrasion, left knee, initial encounter; W00.0XXA Fall on same level due to ice and snow, initial encounter; Z23 Encounter for immunization | CPT/HCPCS: 73110; 73562; 90715; 99203 ==

== ENCOUNTER → 2024-04-16 07:58 | Outpatient (BNVA) | payer OTHER, SELFPAY | PROVIDERS: PCP Internal Medicine; Visit Provider Internal Medicine | DX: S63.502A Unspecified sprain of left wrist, initial encounter (principal); S80.02XA Contusion of left knee, initial encounter; S80.212A Abrasion, left knee, initial encounter; W00.0XXA Fall on same level due to ice and snow, initial encounter | CPT/HCPCS: 99213 ==

== ENCOUNTER → 2024-04-19 11:13 | Outpatient (BNVA) | payer OTHER, SELFPAY | PROVIDERS: PCP Internal Medicine; Visit Provider Internal Medicine | DX: S80.02XA Contusion of left knee, initial encounter (principal); W00.0XXA Fall on same level due to ice and snow, initial encounter | CPT/HCPCS: 99213 ==

== ENCOUNTER → 2024-04-30 07:56 | Outpatient (BNVA) | payer OTHER, SELFPAY | PROVIDERS: PCP Internal Medicine; Visit Provider Internal Medicine | DX: S80.02XA Contusion of left knee, initial encounter (principal); W00.0XXA Fall on same level due to ice and snow, initial encounter | CPT/HCPCS: 99213 ==

== ENCOUNTER → 2024-05-07 11:07 | Outpatient (BNVA) | payer OTHER, SELFPAY | PROVIDERS: PCP Internal Medicine; Visit Provider Internal Medicine | DX: S80.02XA Contusion of left knee, initial encounter (principal); W00.0XXA Fall on same level due to ice and snow, initial encounter; Z02.79 Encounter for issue of other medical certificate | CPT/HCPCS: 99213 ==

== ENCOUNTER 2024-05-14 11:59 | Outpatient (RCR) | payer OTHER, SELFPAY ==
--- NOTE | 2024-04-23 13:56 | MHC.PT.EP ---
[facility] [place] Office [place] Office [place] Office [address] [phone] F: [phone] F: [phone] F: [phone] F: [phone] Physical Therapy Plan of Care Date of Evaluation: 04/22/24 Date of Surgery: n/a Diagnosis: left knee injury/contusion Assessment: Pt is a 53 yo M who was referred to physical therapy for acute L knee contusion following a fall at his work 04/14/24. 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 Patient reports he has most difficulty with standing, walking, stair negotiation, and prolonged positions (sitting/standing). Patient presents with L decreased ROM, decreased knee/hip strength, increased HS muscle tightness, and impaired gait pattern. Patient is a good candidate for skilled PT 2x a week for 4 weeks to increase improve functional mobility, LE strength, and ROM. 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 Manual therapy to restore motion and function. Therapeutic exercise to improve strength and flexibility. Neuromuscular re-education for posture and balance. Therapeutic activities to return to functional activities of daily living. Electronically signed by: Rossi Ibarra, PT, DPT Please sign and return to therapist. Thank you for your referral.
--- NOTE | 2024-06-30 09:43 | MHC.PT.DC ---
[facility] [place] Office [place] Office [place] Office [address] Hedy Betancur [address] [phone] F: [phone] F: [phone] F: [phone] F: [phone] Physical Therapy Discharge Report Diagnosis: left knee injury/contusion Date of Surgery: n/a Date of Evaluation: 04/22/24 Date of Discharge: 06/30/24 Treatments to Date: 5 Cancellations to Date: 3 No Shows to Date: 1 Discharge Status: Visit Non-compliance Discharge Summary: Pt was seen for skilled PT from 04/22/24-05/14/24. His last attended appointment was 05/14/24. He has had 3 cancellations throughout plan of care and a no show for his last scheduled appointment. He is being D/C from skilled PT as he has not attended or called to reschedule in > 30 days. Pt current level of function unknown at this time Electronically signed by: Rossi Ibarra, PT, DPT Please sign and return to therapist. Thank you for your referral.
== END 2024-06-30 09:42 | disposition home or self-care (01) ==
LOC: HO.PT 11:59
PROVIDERS: PCP Internal Medicine; Visit Provider Internal Medicine
DX: S80.02XD Contusion of left knee, subsequent encounter (principal); X58.XXXD Exposure to other specified factors, subsequent encounter
CPT/HCPCS: 97110; 97140; 97161; 97530

== ENCOUNTER 2024-06-08 08:10 | Outpatient (AMB) | payer OTHER, SELFPAY ==
--- OUTSIDE RECORDS SUMMARY | 2024-06-08 08:23 | XMS_ITS | Clinical Summary ---
Author Organization 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 Name Role Phone Unavailable Primary Care Provider Unavailabl e Social History Tobacco Use Types Packs/Day Years Used Date Smoking Tobacco: Never Assessed Sex and Gender Information Value Date Recorded Sex Assigned at Not on file Legal Sex Male 2:23 PM EDT Gender Identity Not on file Sexual Orientation Not on file Plan of Treatment Health Maintenance Due Date Last Done Comments Hepatitis B Vaccine (1 of 3 - 19+ 3-dose series) 05/12 Colorectal Cancer Screening: Annual FOBT 2018 Colorectal Cancer Screening: Colonoscopy 2018 Colorectal Cancer Screening: Sigmoidoscopy 2018 Pneumococcal Vaccine: 50+ Years (1 of 1 - PCV) 020 Influenza Vaccine (Season Ended) 2024 Insurance [employer]
--- OUTSIDE RECORDS SUMMARY | 2024-06-08 08:23 | XMS_ITS | Clinical Summary ---
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 Name Role Phone Ann-Marie Gross MD Primary Care Provider [phone] Social History Tobacco Use Types Packs/Day Years Used Date Smoking Tobacco: Never Assessed Sex and Gender Information Value Date Recorded Sex Assigned at Not on file Gender Identity Not on file Sexual Orientation Not on file Job Start Date Occupation Industry Not on file Not on file Not on file Plan of Treatment Health Maintenance Due Date Last Done Comments Hepatitis B Vaccines (1 of 3 - 3-dose series) 1969 Hepatitis C Screening 1969 COVID-19 Vaccine (#1) 1969 Depression Screening 1981 Preventative Health Evaluation 05/13/1987 Colon Cancer Screening (Colonoscopy) 2014 Shingrix-Zoster Vaccine (1 o f 2) 05/13/2019 Influenza Vaccine (#1) 2023 5, 11/18/2013, 10/19/2010 DTap / Tdap / Td (4 - Td or Tdap) 11/19/2023 11/18/2013, 10/19/2010, 06/12/1999 Pneumococcal Vaccine Aged Out No long er eligible based on patient's age to complete this topic RSV Ped < 20 months Aged Out No longe r eligible based on patient's age to complete this topic Care Teams Shrimp Cleaner Relationship Specialty Start Date End Date Ann-Marie Gross MD PCP - General Internal Medicine 06/20/20
--- OUTSIDE RECORDS SUMMARY | 2024-06-08 08:23 | XMS_ITS | Data Portability ---
Author Organization [place] - [facility], Allergy Address [address] [address] Care Team Providers Care Reference And Instruction Librarian Name Role Phone LASHANDA DIETZ Referring Provider Assessment Encounter Date Assessment Date Assessment LastModified by Organization Details LastModified Time 03/23/2024 03/23/2024 53-year-old male status post septoplasty [place] [address] Padilla presents for evaluation of chronic right-sided nasal congestion. He feels the congestion worsened after his septoplasty. It is worse during the day, and improves at night with his BiPAP machine, although he reports the congestion interferes with using the sleep machine. Exam demonstrates bilateral inferior turbinate hypertrophy with mild septal deviation. Nasal endoscopy was without obvious mass, obstruction, or purulence although exam was limited due to narrow nasal passage. Recommend trialing intranasal fluticasone 2 sprays daily for 4 to 6 weeks, using opposite hand technique. Will obtain CT sinus and call with results. [email or web address] Not available 03/23/2024 13:01:13 05/13/2024 05/13/2024 Patient describes symptoms of chronic rhinitis suggestive of vasomotor rhinitis. This condition is often characterized by clear watery nasal discharge which is made worse with temperature fluctuation, eating, supine position as well as use of CPAP. Recommend trial of ipratropium nasal spray. They should begin use with a single spray before bed and may gradually increase the frequency if they find relief. Side effects of drying the nasal mucosa may decrease the tolerance of this medication. They may also use nasal saline to help balance the nasal mucosa. [email or web address] Not available 05/13/2024 15:49:05 Plan of Treatment Reminders Order Date Submit Date Provider Last Modified By Organization Details Last Modified Time Details Appointments None recorded. Lab None recorded. Referral None recorded. Procedures None recorded. Surgeries None recorded. Imaging CT, sinuses, w/o contrast 2024 025 [facility], [address], [address], [place], [address], 5 06:37:04 Medication Orders ipratropium bromide 21 mcg (0.03 %) nasal spray 2024 025 [id number], [address] [place], [address], 5 15:49:01 fluticasone propionate 50 mcg/actuati on nasal spray,suspe nsion 2024 025 [id number], [address] [facility], [place], [address], 5 12:05:23 Patient TargetsNo targets recorded. Patient InstructionsNo instructions recorded. Reason for Referral None Reported. Results Created Date Observation Date Name Description Value Unit Range Abnormal Flag Note LastModifiedBy Organization Detail LastModifiedTime 04/03/19 25 04/02/2024 CT, sinus es, w/o contr ast No observ ation record ed. [facility] [address] [address], [place], [address], 04/05/2024 17:41:20 Result Notes None recorded. Problems Name Problem SNOMED Code Status Onset Date Resolution Date Notes Provider Name and Address Organization Details Recorded Time Obstructi ve sleep apnea syndrome 30301314 Active 2019 Obstructi ve sleep apnea (adult) (pediatri c); Note: Date Diagnosed : 08/03/2019 11:27 AM (G47.33) Not Available [facility] 4 03:19:43 Hypertrop hy of nasal turbinate s 26781447 Active 2017 Hypertrop hy of nasal turbinate s; Note: Date Diagnosed : 09/18/2017 2:47 PM (J34.3) Not Available [facility] 4 03:19:43 Follow-up visit Active 2019 Medical surveilla nce following completed treatment ; Note: Date Diagnosed : 09/03/2019 3:24 PM (Z09) Not Available [facility] 4 03:19:43 Superfici al mycosis 969801917 Active 2017 Superfici al mycosis, unspecifi ed; Note: Date Diagnosed : 09/18/2017 2:53 PM (B36.9) Not Available [facility] 4 03:19:44 Deviated nasal septum 105280342 Active 2017 Deviated nasal septum; Note: Date Diagnosed : 09/18/2017 2:46 PM (J34.2) Not Available [facility] 4 03:19:44 Nasal congestio n 40348483 Active 2024 ELVIA INGRAM PA-C [address], [place], [address] , [place] - [facility] 5 12:03:26 Chronic sinusitis 54758368 Active 2024 ELVIA INGRAM PA-C [address], [place], [address] , [place] [facility] 5 17:41:36 Pansinusi tis 635264493 Active 2024 ELVIA INGRAM PA-C [address], [place], [address] , [place] - [facility] 5 17:41:46 Chronic right maxillary sinusitis 25212728380 690268 Active 2024 GENEVIEVE PADILLA MD [address], [place], [address] , [place] [facility] 5 16:26:49 Vasomotor rhinitis 4066679 Active 2024 GENEVIEVE PADILLA MD [address], [place], [address] , [place] - [facility] 15:45:52 Problem Notes None recorded. Procedures Surgical History Date Name Laterality Status Provider Name and Address Organization Details Recorded Time Nasal Endoscopy completed ELVIA INGRAM PA-C 100 [facility], [place], [address], [facility] - [facility] 03/23/2024 12:57:13 Imaging Results Imaging Date Name Status LastModified by Organiz ation Details LastModified Time 04/02/2024 CT, sinuses, w/o contrast completed [facility] [address] [facility] [address], [place], [address], 04/05/2024 17:41:20 Procedure Notes None recorded. Medical Equipment None Reported. Medications Name Sig Start Date Stop Date Status Note LastModified by Organization Details LastModified Time cyclobenz aprine 10 mg tablet TAKE 1 TABLET BY MOUTH TWICE A DAY NEEDED FOR MUSCLE SPASM 05/13 completed Not Available Not Available Not Available doxycycli ne hyclate 100 mg capsule TAKE 1 CAPSULE BY MOUTH TWICE A DAY FOR 14 DAYS 05/13 completed Not Available Not Available Not Available atorvasta tin 10 mg tablet TAKE 1 TABLET BY MOUTH EVERY DAY active Not Available Not Available No t Available azithromy james 250 mg tablet TAKE 2 TABLETS TODAY AND THEN 1 TABLET DAILY FOR 4 MORE DAYS 05/13 completed Not Available Not Available Not Available ibuprofen 800 mg tablet TAKE 1 TABLET BY MOUTH 3 TIMES A DAY FOR PAIN OR SWELLING active Not Available Not Available No t Available doxycycli ne monohydra te 100 mg tablet TAKE 1 TABLET TWICE A DAY BY ORAL ROUTE WITH MEAL(S) FOR 21 DAYS, FOR PANSINUS ITIS. active Not Available Not Available No t Available sildenafi l 100 mg tablet TAKE 1 TABLET BY MOUTH DAILY NEEDED FOR ERECTILE DYSFUNCT ION (NOT TO EXCEED 1 DOSE PER 24/HRS). active Not Available Not Available No t Available amlodipin e 10 mg tablet TAKE 1 TABLET BY MOUTH EVERY DAY active Not Available Not Available No t Available cephalexi n 500 mg capsule TAKE 1 CAPSULE BY MOUTH TWICE A DAY FOR 10 DAYS 05/13 completed Not Available Not Available Not Available lisinopri l 10 mg tablet TAKE 1 TABLET BY MOUTH EVERYDAY AT BEDTIME active Not Available Not Available No t Available clotrimaz ole 1 % topical solution 2017 active Medicati on ID: [id number] Karena [place] By Name: Prem Lee nd Name: jah amaral Bal d Method: E-Prescr ibed Sub s Allowed: subs OK Speci al Instruct ion: 5 drops to affected ear twice a day Medi cationGe nericNam e: clotrima zole Not Available Not Available Not Available omeprazol e 20 mg capsule,d elayed release TAKE 1 CAPSULE BY MOUTH EVERY DAY active Not Available Not Available No t Available methylpre dnisolone 4 mg tablets in a dose pack TAKE 6 TABLETS ON DAY 1 DIRECTED ON PACKAGE AND DECREASE BY 1 TAB EACH DAY FOR A TOTAL OF 6 DAYS 05/13 completed Not Available Not Available Not Available fluticaso ne propionat e 50 mcg/actua tion nasal spray,chris pension [place] 2 sprays every day by intranas al route for 42 days, for nasal congesti on. 2024 active Not Available Not Available Not Avai lable ipratropi um bromide 21 mcg (0.03 %) nasal spray INSTILL 2 SPRAYS INTO EACH NOSTRIL 3 TIMES A DAY FOR NASAL CONGESTI ON active Not Available Not Available No t Available amoxicill in 875 mg-potass ium clavulana te 125 mg tablet TAKE 1 TABLET BY MOUTH TWICE A DAY FOR 5 DAYS 05/13 completed Not Available Not Available Not Available cyclobenz aprine 5 mg tablet TAKE 1 TABLET BY MOUTH EVERY 12 HOURS 05/13 completed Not Available Not Available Not Available Sinus Wash Neti Pot with packet Take 1 packet twice a day by nasal route for 21 days. 2024 active Not Available Not Available Not Avai lable Vitals Date Recorded Body height Provider Name an d Address Organization Details Last Updated DateTime 05/13/[address] [place] [facility] 05/13/2024 15:08:58 Date Recorded Body height Body mass index (BMI) Body weight Provider Name and Address Organization Details Last Updated DateTime 03/23/2024 179.07 cm 43.4 kg/m2 291466.86 g Alva Lucas [place] - [facility] 03/23/2024 11:38:14 Social History Question Answer Notes LastModified by Organizat ion Details LastModified Time Tobacco Smoking Status Never Smoker KY[place]G [place] - [facility] 05/13/2024 15:12:02 What Is Your Level Of Alcohol Consumption? None [email or web address] Information not available 05/13/2024 Sex: Unknown Functional Status None recorded. Mental Status None recorded. Family History Nothing Reported. Medical History No medical history recorded. Past Encounters Encounter ID Performer Location Encounter Start Date Encounter Closed Date Diagnosis/Indication Diagnosis SNOMED-CT Code Diagnosis ICD10 Code Diagnosis Note [id number] AVELINO LONG MD [facility] [address] [address] 03/23/2024 11:21:44 03/23/2024 12:06:29 Deviated nasal septum 732505689 J34.2 Hypertroph y of nasal turbinates 73139608 J34.3 Obstructiv e sleep apnea syndrome 63449333 G47.33 Nasal congestion 6766864 0 R09.81 [id number] GENEVIEVE PADILLA MD [facility] [address] [address] 05/13/2024 14:44:23 05/13/2024 15:51:05 Chronic right maxillary sinusitis 5498334393 4311113 J32.0 Highly suspect odontogeni c source of chronic sinusitis with review of imaging and intraoral examinatio n showing exposed and odontogeni c roots, periodonta l disease. He is working with dentist for possible implants. Nasal congestion 1143570 0 R09.81 Vasomotor rhinitis 19761 03 J30.0 Patient experience s a nasal cycle with alternatin g congestion which is worse when using his BiPAP Health Concerns Section Related Observation LastModified by Organization Detai ls LastModified Time None Recorded Concern Status LastModified by Organization Details LastModified Time None Recorded Advance Directives Directive None Recorded Payers Encounter Date Sequence Insurance Name Policy Number Policy Dodson Covered Member ID Dodson Member ID Guarantor Name 03/23/2024 1 [facility] Ari Jacobs [id number] Ari Jacobs 05/13/2024 1 [facility] [id number] Ari Jacobs Notes Date Note Type Note Provider Name and Address Organization Details Recorded Time 03/23/2024 text/html 53-year-old male with mild left septal deviation status post septoplasty [address] Padilla presents for evaluation of chronic right-sided nasal congestion. He feels the congestion worsened after his septoplasty. It is worse during the day, and improves at night with his BiPAP machine. The congestion does interfere with using the sleep machine. Denies seasonal allergies, nasal pain, facial pain or nasal drainage. He has trialed intranasal fluticasone in the past, with minimal improvement. ELVIA INGRAM PA-C 100 [facility],[address], [address], [place] - [facility] 03/23/2024 13:01:16 05/13/2024 text/html nasal congestion worse on right side during daybiPAP is used at night with some difficulty due to drying outcan have it fluctuate congestion left and right 04/02/2024 [facility], CT sinus noncontrastMucosal thickening of paranasal sinus. Frothy material and air-fluid level right maxillary sinus. Minimal anterior rightward deviation of septum. Opacification of right and left infundibulum. 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
--- NOTE | 2024-06-08 08:43 | AM.OFFWIN_ITS ---
Intake Vital Signs 06/08/24 08:47 Weight 317 lb BP 128/80 Blood Pressure Location Lt brachial Position Sitting Pulse 63 Pulse Source Pulse Oximeter Temp 98.0 F Temp Source Oral Pulse Oximetry (%) 98 Oxygen Delivery Method Room Air Intake Visit Reasons: EP Chest congestion, sob, raspy voice Intake Note: Patient here for chest congestion, sob and raspy voice that started this morning. Patient Tobacco Use Status: Never used Tobacco Allergies No Known Allergies [NO KNOWN ALLERGIES] Allergy (Unknown, Verified 06/08/24 08:45) unknown Do you need a note to return to daycare/school/sports/work: Yes HPI HPI Comments History of Present Illness Details History - The patient is a 54-year-old male pres enting with symptoms including a worsening voice, chest pain, and slight shortness of breath, which began today. - Accompanying these symptoms, his partn er has experienced a cough, runny nose, and chest pain since the previous . - No fever, ear pain, or sinus pain were present. - The patient has no history of asthma o r COPD, nor has he used any inhalers. - Medication has not been taken to date. - Fatigue was noted in the morning. Physical Exam General: Cooperative, healthy appearing, comfortable and no acute distress Orientation/consciousness: Patient oriented x3 Limitations: No limitations Head: Normal to inspection Ears: Hearing grossly normal bilaterally, external ears normal and TM's normal bilaterally Nose: Normal external nose present, Normal nares present and No nasal discharge present Face and sinus: Normal facial exam and Yes sinuses nontender Mouth: Normal oral and palatal mucosa present and moist mucous membranes Throat: Yes tonsils normal, Yes uvula midline. Posterior oropharynx erythema Eyes: Appearance normal, both eyes and all related structures Neck: Normal visual inspection Respiratory: Clear to auscultation bilaterally. Normal respiratory effort, able to speak in complete sentences, Actively coughing, no respiratory distress, not tachypneic, no tripod positioning and no use of accessory muscles Cardiovascular: Regular rate and rhythm. Normal S1 and S2 Skin: No rashes or lesions noted Neuro: Patient oriented x3 Extremities: Normal to inspection and Yes no clubbing, cyanosis or edema PFSH Social History Patient Tobacco Use Status: Never used Tobacco Review of Systems Const All systems reviewed & are unremarkable except as noted in HPI and below Physical Exam Vital Signs: Last Vital Signs Temp 98.0 F 06/08/24 08:47 Pulse 63 06/08/24 08:47 BP 128/80 06/08/24 08:47 Pulse Ox 98 06/08/24 08:47 Oxygen Delivery Method Room Air 06/08/24 08:47 Assessment & Plan Assessment & Plan (1) URI, acute: Code(s): J06.9 - Acute upper respiratory infection, unspecified Plan: VSS, pt well appearing and PE unremarkable. The management plan involves symptomatic treatment with Julianne D for decongestion and Tessalon Perles for potential future cough suppression as this virus is likely to get worse before it gets better. Testing for influenza, COVID-19, and RSV was initiated to rule out these conditions. I emphasized rest and hydration to assist recovery. Further management steps, including filling prescriptions, are suggested based on symptom progression and test outcomes, with the assurance of providing treatment flexibility and comfort-based care decisions. Patient was informed and verbally consented to the use of an ambient scribe for clinic note documentation during this visit Orders: Orders SARS-CoV2/FLU/RSV Today R09.89 - Other specified symptoms and signs involving the circulatory and respiratory systems Medications: New benzonatate 200 mg PO BEDTIME PRN 10 caps 0RF cough Coding Level of Care Code Est Pt Level 3 (15515) Diagnoses URI, acute J06.9
[2024-06-08 08:47] VITALS: BP 128/80; PULSE 63; TEMP 36.7; O2SAT 98
== END 2024-06-08 09:17 | disposition home or self-care (01) ==
PROVIDERS: PCP Internal Medicine; Visit Provider Physician Assistant
DX: J06.9 Acute upper respiratory infection, unspecified (principal)

== ENCOUNTER 2024-06-08 08:10 | Outpatient (REF) | payer OTHER, SELFPAY ==
--- OUTSIDE RECORDS SUMMARY | 2024-06-08 09:50 | XMS_ITS | Clinical Summary ---
Author Organization [facility] Address [address] [place] [address] Care Team Providers Care Pre Sales Systems Engineer Name Role Phone Ann-Marie Gross MD Primary Care Provider [phone] Social History Tobacco Use Types Packs/Day Years [...] age to complete this topic Care Teams Pre Sales Systems Engineer Relationship Specialty Start Date End Date Ann-Marie Gross MD PCP - General Internal Medicine 06/20/20
--- OUTSIDE RECORDS SUMMARY | 2024-06-08 09:50 | XMS_ITS | Clinical Summary ---
Author Organization [facility] Facility Address [address] [place] [address] Care Team Providers Care Facility Manager Name Role Phone Unavailable Primary Care Provider [...]
--- OUTSIDE RECORDS SUMMARY | 2024-06-08 09:50 | XMS_ITS | Clinical Summary ---
Author Organization [facility] [address] [place] [address] [place] [phone] Phone Care Team Providers Care Blueprint Clerk Name Role Phone Vahid Vargas MD Primary Care Provider [phone] Allergies No known active allergies Medications amLODIPine (NORVASC) 10 mg tablet Take 1 Tablet by mouth daily. 09/03/19 24 Active atorvastatin (LIPITOR) 10 mg tablet Take 1 Tablet by mouth daily. 09/03/19 24 Active omeprazole (PriLOSEC) [address] capsule Take 1 Capsule by mouth daily. 09/03/19 24 Active sildenafiL (VIAGRA) 100 mg tablet Take 1 Tablet by mouth daily as needed for Erectile Dysfunction (NOT TO EXCEED 1 DOSE PER 24/hrs). 09/03/19 24 Active lisinopriL (PRINIVIL,ZESTR IL) 10 mg tablet TAKE 1 TABLET BY MOUTH EVERYDAY AT BEDTIME 90 tablet 1 03/25/19 25 Active tirzepatide, weight loss, (Zepbound) 2.5 mg/0.5 mL injectionIndica tions:Class 3 severe obesity due to excess calories with serious comorbidity and body mass index (BMI) of 45.0 to 49.9 in adult INJECT 0.5 ML (2.5 MG TOTAL) UNDER THE SKIN EVERY 7 (SEVEN) DAYS FOR 4 DOSES. 2 mL 06/03/19 25 025 Active tirzepatide, weight loss, (Zepbound) 2.5 mg/0.5 mL injectionIndica tions:Class 3 severe obesity due to excess calories with serious comorbidity and body mass index (BMI) of 45.0 to 49.9 in adult Inject 0.5 mL (2.5 mg total) under the skin every 7 (seven) days for 4 doses. 2 mL 06/02/19 25 025 Discontinued tirzepatide, weight loss, (Zepbound) 2.5 mg/0.5 mL injectionIndica tions:Class 3 severe obesity due to excess calories with serious comorbidity and body mass index (BMI) of 45.0 to 49.9 in adult INJECT 0.5 ML (2.5 MG TOTAL) UNDER THE SKIN EVERY 7 (SEVEN) DAYS FOR 4 DOSES. 2 mL 06/03/19 25 025 Discontinued Active Problems Problem Noted Date Diagnosed Date Dyslipidemia 11/14/2023 HTN (hypertension) 11/14/2023 Morbid obesity with BMI of 4 5.0-49.9, adult (CMS/[facility] V24, [facility] V28) 11/14/2023 Mass of skin of left shoulder 09/04/2021 Elevated LFTs 08/08/2021 Neuroforaminal stenosis of cervical spine 2020 Overview (11/14/2023): Moderate to severe R>L. S/p cervical MRI 06/2020 Symptoms of right radiculopathy Erectile dysfunction 12/09/2019 SPIKE (obstructive sleep apnea) 06/10/2019 Overview (11/14/2023): HSAT: Result Date:08/22/2021. Severe degree of sleep apnea findings with severe degree of desatruations. AHI is 45,mostly obstructive apnea and hypoapnea with oxygen avrage 89% and adia 70%. Patient spent 49% with oxygen saturation 88% or bellow Last Assessment & Plan: [facility]: Sent CPAP 4-20cm H2O Ordered treatment study to evluate if needs step up therepy due to oxygenation. Gastroesophageal reflux disease 06/10/2019 Anxiety 06/10/2019 Deviated septum 06/10/2019 Umbilical hernia 10/01/2011 Encounters Date Type Department Care Team Description 06/01/2024 3:30 PM EDT Consult Bariatric Surgery - [address] [place] [address] Christina Bateman MD Class 3 severe obesity due to excess calories with serious comorbidity and body mass index (BMI) of 45.0 to 49.9 in adult (Primary Dx) from Last 3 Months Immunizations Name Administration Dates Next Due Diptheria & Tetanus, 6wks to less than 7yo 06/11 Influenza trivalent, with pr eservative (Fluzone; Afluria) 6mo and older 10/19/2010 Tdap Tetanus diptheria acell ular pertussis (Boostrix; Adacel) 7yo and older 11/18/2013,10/19/2010 Surgical History Surgery Date Site/Laterality Comments SHOULDER SURGERY Left PROCEDURE: [place] UNLISTED PROCEDURE SHOULDER; COMMENT: rotator cuff HERNIA REPAIR PROCEDURE: HISTORICAL HERNIA REPAIR/UMB Medical History Medical History Date Comments Umbilical hernia 10/01/2011 DX:Umbilical he rnia Dyslipidemia DX:Dyslipidemia HTN (hypertension) DX:HTN (hyper tension) Gastroesophageal reflux disease 06/10/2019 DX:Gastroesophageal reflux disease Erectile dysfunction 12/09/2019 DX:Erectile dysfunction Deviated septum 06/10/2019 DX:Deviated sept um Anxiety 06/10/2019 DX:Anxiety SPIKE (obstructive sleep apnea) 06/10/2019 DX :SPIKE (obstructive sleep apnea) Family History Medical History Relation Name Comments Alcohol abuse Brother Heart attack Brother Hypertension Brother Other: unknown Father No Known Problems Maternal Grandfather COPD Maternal Grandmother Other: TIA Mother Relation Name Status Comments Brother Alive Father Maternal Grandfather Maternal Grandmother Mother Alive Social History Tobacco Use Types Packs/Day Years Used Date Smoking Tobacco: Former Smokeless Tobacco: Never Tobacco Cessation:Counseling Given: Not Answered Alcohol Use Standard Drinks/Week Comments Yes 0 (1 standard drink = 0.6 oz pur e alcohol) Sex and Gender Information Value Date Recorded Sex Assigned at Not on file Legal Sex Male 2:11 PM EST Gender Identity Not on file Sexual Orientation Not on file Obstetrics History Last Filed Vital Signs Vital Sign Reading Time Taken Comments Blood Pressure 143/75 06/01/2024 3:18 PM EDT Pulse 63 06/01/2024 3:18 PM EDT Temperature 36.6 ??C (97.8 ??F) 06/01/2024 3:18 PM ED T Respiratory Rate 18 02/17/2024 1:38 PM EST Oxygen Saturation 97% 02/17/2024 1:38 PM EST Inhaled Oxygen Concentration - - Weight 149 kg (329 lb) 06/01/2024 3:18 PM EDT Height 179.1 cm (5' 10.5 ) 06/01/2024 3:18 PM ED T Body Mass Index 46.54 06/01/2024 3:18 PM EDT Plan of Treatment Upcoming Encounters Date Type Department Care Team (Late st Contact Info) Description 06/16/2024 1:25 PM EDT Office Visit Pulmonolgy - [place] [address] [place] [phone] Za Haile NP [address] [place] [address] 10/12/2024 2:45 PM EDT Office Visit Bariatric Surgery - [place] [address] [place] [phone] Christina [facility] [place] [address] Health Maintenance Due Date Last Done Comments Hepatitis B Vaccines (1 of 3 - 19+ 3-dose series) 1988 Pneumococcal Vaccine: 50+ Years (1 of 1 - PCV) 05/13/2019 Zoster Vaccines (1 of 2) 05/13/2019 Depression Screening 01/19/2022 Social Influencers of Health Screening 01/19/2022 COVID-19 Vaccine ( - 2023- season) 2023 01/03/2021, 12/09/2020 Hypertension/CHF/CAD Annual BMP Blood Test 09/02/2024 09/03/2023, 09/03/2023 Influenza Vaccine (Season Ended) 2024 01/12/2015, 11/18/2013, 10/19/2010 Cholesterol Screening (Lipid Panel) 09/02/2028 09/03/2023, 09/03/2023 Colorectal Cancer Screening: Colonoscopy 09/23/2032 09/23/2022 DTaP,Tdap,and Td Vaccines (5 - Td or Tdap) 04/14/2034 04/14/2024, 11/18/2013, 10/19/2010, Additional history exists HIV Screening Completed 02/24/2019 Hepatitis C Screening Completed 02/24/2019 HIB Vaccines Aged Out No longer eligi ble based on patient's age to complete this topic HPV Vaccines Aged Out No longer eligi ble based on patient's age to complete this topic Hepatitis A Vaccines Aged Out No long er eligible based on patient's age to complete this topic IPV Vaccines Aged Out No longer eligi ble based on patient's age to complete this topic MMR Vaccines Aged Out No longer eligi ble based on patient's age to complete this topic Meningococcal ACWY Vaccine Aged Out N o longer eligible based on patient's age to complete this topic Meningococcal B Vaccine Aged Out No l onger eligible based on patient's age to complete this topic Pneumococcal Vaccine: Pediatrics (0 to 5 Years) and At-Risk Patients (6 to 64 Years) Aged Out No longer eligible based on patient's age to complete this topic RSV Immunization Patients Under 20 months Aged Out No longer eligible based on patient's age to complete this topic Varicella Vaccines Aged Out No longer eligible based on patient's age to complete this topic Procedures Procedure Name Priority Date/Time Associated Diagnosis Comments EXTERNAL XRAY REPORT 04/14/2024 EXTERNAL XRAY REPORT 04/14/2024 EXTERNAL XRAY REPORT 04/14/2024 EXTERNAL XRAY REPORT 04/14/2024 ANNUAL BMP BLOOD TEST Routine 09/03/2023 LIPID PANEL Routine 09/03/2023 COLONOSCOPY Routine 09/23/2022 HEPATITIS C SCREENING Routine 02/24/2019 HIV SCREENING Routine 02/24/2019 from Last 3 Months or Most Recently Relevant to Health Maintenance Results * External Xray Report (04/14/2024) Only the most recent of4 resultswithin the time period is included. Anatomical Region Laterality Modality Radiographic Rachel ging us Provider Onbase IMG XR PROCEDURES Final Resul t * Annual BMP Blood Test (09/03/2023) Annual BMP Blood Test ABSTRACTED us Historical Provider HEALTH MAINTENANCE Final Result * (ABNORMAL) Lipid panel (09/03/2023) [facility] LDL/HDL Ratio 4 0 - 4 Triglycerides 161(A) 0 - 150 mg/dL Cholesterol 153 0 - 200 mg/dL HDL 43 >=40 mg/dL LDL Cholesterol 78 0 - 100 mg/dL Blood Venous blood specimen / Unknown Result [facility] Provider LAB BLOOD ORDERABLES Little l Result * Colonoscopy (09/23/2022) [facility] Colonoscopy NORMAL ABSTRACTED Anatomical Region Laterality Modality Other Result [facility] Provider HEALTH MAINTENANCE Final Result * HIV Screening (02/24/2019) [facility] HIV Screening ABSTRACTED Result [facility] Provider HEALTH MAINTENANCE Final Result * Hepatitis C Screening (02/24/2019) [facility] Hepatitis C Screening ABSTRACTED [facility] Provider HEALTH MAINTENANCE Final Result from Last 3 Months or Most Recently Relevant to Health Maintenance Insurance [employer] Care Teams Blueprint Clerk Relationship Specialty Start Date End Date Vahid Vargas MD [address] [place] [phone] PCP - General Internal Medicine 08/28/20
[2024-06-08 12:56] LABS: Influenza A PCR NEGATIVE (Negative); Influenza B PCR NEGATIVE (Negative); Resp Syncy Virus RNA Qual PCR NEGATIVE (Negative); SARS COV2 PCR INHOUSE NEGATIVE (Negative)
== END 2024-06-08 08:11 | disposition home or self-care (01) ==
LOC: HO.LAB 08:10
PROVIDERS: Physician Assistant; PCP Internal Medicine
DX: J06.9 Acute upper respiratory infection, unspecified (principal); R09.89 Other specified symptoms and signs involving the circulatory and respiratory systems
CPT/HCPCS: 0241U

== ENCOUNTER 2024-10-25 10:07 | Outpatient (AMB) | payer OTHER, SELFPAY ==
--- OUTSIDE RECORDS SUMMARY | 2024-10-22 11:30 | XMS_ITS | Encounter Summary ---
Author Organization [facility] Address [address] [place] [address] Care Team Providers Care Pharmacy Specialist Name Role Phone Vahid Vargas MD Primary Care Provider [phone] Reason for Referral * Consultation (Routine) - Authorized Specialty Diagnoses / Procedures Referred By Contac t Referred To Contact General Surgery Diagnoses Abdominal wall bulge Benito Burroughs PA [address] [place] [address] Phone: tel: fax: General Surgery [address] [address] Phone: tel: fax: Referral ID Status Reason Start Date Expiration Date Visits Requested Visits Authorized [id number] Authorized Specialty Services Required 10/22/2024 10/22/2025 1 1 * Imaging (Routine) - Pending Review Specialty Diagnoses / Procedures Referred By Contac t Referred To Contact Radiology Diagnoses Abdominal wall bulge Procedures CT Abdomen Pelvis wo Contrast Benito Burroughs PA [address] [place] [address] Phone: tel: fax: [address] Phone: tel: Referral ID Status Reason Start Date Expiration Date V isits Requested Visits Authorized [id number] Pending Review 10/22/2024 10/22/2025 1 1 Reason for Visit * Reason Comments Hernia Abdominal Encounter Details Date Type Department Care Team (Late Contact Info) Description 10/22/2024 11:30 AM EDT Office Visit Adult Medicine [facility] [address] [place] [address] Benito Burroughs PA [address] [place], [place] Hypertension, unspecified type (Primary Dx); Dyslipidemia; Abdominal wall bulge Social History Tobacco Use Types Packs/Day Years [...] on file Sexual Orientation Not on file documented as of this encounter Last Filed Vital Signs Vital Sign Reading Time Taken Comments Blood Pressure 130/70 10/22/2024 11:29 AM EDT Pulse 64 10/22/2024 11:29 AM EDT Temperature 36.2 C (97.1 F) 10/22/2024 11:29 AM EDT Respiratory Rate - - Oxygen Saturation 97% 10/22/2024 11:29 AM EDT Inhaled Oxygen Concentration - - Weight 141 kg (311 lb 3.2 oz) 10/22/2024 11:29 A M EDT Height 177.8 cm (5' 10 ) 10/22/2024 11:29 AM EDT Body Mass Index 44.65 10/22/2024 11:29 AM EDT documented in this encounter Plan of Treatment Upcoming Encounters Date Type Department Care Team (Late st Contact Info) Description 10/26/2024 9:45 AM EDT Consult General Surgery - [address] [place] [address] Pablo Rust MD [address] [place] [phone] 04/19/2025 1:00 PM EDT Office Visit Bariatric Surgery - [address] [place] [address] Christina Bateman MD [address] [place] [phone] Scheduled Orders Name Type Priority Associated Diagnoses Orde r Schedule CT Abdomen Pelvis wo Contrast Imaging Routine Abdominal wall bulge Expected: 10/22/2024, Expires: 10/22/2025 Scheduled Referrals Name Type Priority Associated Diagnoses Order Schedule Ambulatory referral to General Surgery Outpatient Referral Routine Abdominal wall bulge 1 Occurrences starting 10/22/2024 until 10/22/2025 documented as of this encounter Results * Comprehensive metabolic panel (10/22/2024 12:17 PM EDT) Sodium 141 133 - 145 mmol/L LAB CHEMISTRY METHOD 10/22/2024 3:34 PM [facility] Potassium 4.0 3.5 - 5.5 mmol/L LAB CHEMISTRY METHOD 10/22/2024 3:34 PM [facility] Chloride 109 96 - 110 mmol/L LAB CHEMISTRY METHOD 10/22/2024 3:34 PM [facility] CO2 26 21 - 32 mmol/L LAB CHEMISTRY METHOD 10/22/2024 3:34 PM [facility] Anion Gap 6 3 - 11 LAB CHEMISTRY METHOD 10/22/2024 3:34 PM [facility] Glucose 94 70 - 100 mg/dL LAB CHEMISTRY METHOD 10/22/2024 3:34 PM [facility] BUN 24 5 - 25 mg/dL LAB CHEMISTRY METHOD 10/22/2024 3:34 PM [facility] Creatinine 1.23 0.70 - 1.30 mg/dL LAB CHEMISTRY METHOD 10/22/2024 3:34 PM [facility] eGFR 69 >=60 mL/min/1. 73m2 LAB CHEMISTRY METHOD 10/22/2024 3:34 PM EDT [facility] Comment:Calculation based on the Chronic Kidney Disease Epidemiology Collaboration (CKD-EPI) equation refit without adjustment for race. BUN/Creatinine Ratio 19.5 LAB CHEMISTRY METHOD 10/22/2024 3:34 PM T [facility] Calcium 9.2 8.5 - 10.5 mg/dL LAB CHEMISTRY METHOD 10/22/2024 3:34 PM T [facility] AST (SGOT) 14 10 - 42 unit/L LAB CHEMISTRY METHOD 10/22/2024 3:34 PM [facility] ALT (SGPT) 36 10 - 60 unit/L LAB CHEMISTRY METHOD 10/22/2024 3:34 PM [facility] Alkaline Phosphatase 107 42 - 121 unit/L LAB CHEMISTRY METHOD 10/22/2024 3:34 PM [facility] Total Protein 7.3 6.0 - 8.0 g/dL LAB CHEMISTRY METHOD 10/22/2024 3:34 PM [facility] Albumin 4.3 3.2 - 5.0 g/dL LAB CHEMISTRY METHOD 10/22/2024 3:34 PM [facility] Total Bilirubin 0.8 0.0 - 1.4 mg/dL LAB CHEMISTRY METHOD 10/22/2024 3:34 PM [facility] Blood Venous blood specimen / Unknown Venipuncture / Unknown 10/22/2024 12:17 PM EDT 10/22/2024 12:17 PM EDT us Benito LOPEZ LAB BLOOD ORDERABLES Fi nal Result [facility] [address] [place] [address], * (ABNORMAL) Lipid panel with reflex to direct LDL (10/22/2024 12:17 PM EDT) Cholesterol 134 0 - 200 mg/dL LAB CHEMISTRY METHOD 10/22/2024 3:35 PM EDT [facility] Triglycerides 169(H) 0 - 150 mg/dL LAB CHEMISTRY METHOD 10/22/2024 3:35 PM EDT [facility] HDL 40 >=40 mg/dL LAB CHEMISTRY METHOD 10/22/2024 3:35 PM EDT [facility] LDL Calculated 60 0 - 100 mg/dL LAB CHEMISTRY METHOD 10/22/2024 3:35 PM EDT [facility] Comment:Estimated LDL Calcul ated using equation: Total cholesterol - HDL cholesterol - (Triglycerides/5) VLDL Cholesterol Benito 33.8 mg/dL LAB CHEMISTRY METHOD 10/22/2024 3:35 PM EDT [facility] Non HDL Chol. (LDL+VLDL) 94 <145 mg/dL LAB CHEMISTRY METHOD 10/22/2024 3:35 PM EDT [facility] Chol/HDL Ratio 3.4 0.0 - 4.4 LAB CHEMISTRY METHOD 10/22/2024 3:35 PM EDT [facility] Blood Venous blood specimen / Unknown Venipuncture / Unknown 10/22/2024 12:17 PM EDT 10/22/2024 12:17 PM EDT us Benito LOPEZ LAB BLOOD ORDERABLES Fi nal Result [facility] [address] [place] [address], documented in this encounter Visit Diagnoses Diagnosis Hypertension, unspecified type- Primary Dyslipidemia Other and unspecified hyperlipidemia Abdominal wall bulge documented in this encounter Additional Health Concerns Assessment Noted Time PHQ-9 Depression Total Score: 0 10/20/19 25 5:33 AM EDT documented as of this encounter Care Teams Pharmacy Specialist Relationship Specialty Start Date End Date Vahid Vargas MD [address] [place] [phone] PCP - General Internal Medicine 08/28/20 documented as of this encounter
--- NOTE | 2024-10-25 11:16 | AM.OFFWIN_ITS ---
Intake Vital Signs 10/25/24 11:17 Height 5 ft 10.5 in Weight 312 lb BMI 44.1 BP 132/84 Blood Pressure Location Lt brachial Position Sitting Pulse 71 Pulse Source Pulse Oximeter Temp 98.4 F Temp Source Oral Pulse Oximetry (%) 97 Oxygen Delivery Method Room Air Intake Visit Reasons: ep fell down stairs, hurt lower back/tail bone Intake Note: pt presents with low back pain and tailbone pain after falling down the stairs last night Patient Tobacco Use Status: Never used Tobacco Allergies No Known Allergies (NO KNOWN ALLERGIES) Allergy (Unknown, Verified 10/25/24 11:19) unknown Do you need a note to return to daycare/school/sports/work: Yes HPI HPI Comments History of Present Illness Details History of Present Illness - The patient is a 54-year-old male pres enting with a fall-related back injury. - The fall occurred while moving furnitu re, resulting in a hard landing on wooden stairs, causing immediate back pain and coccyx discomfort. - He slipped down 4 stairs while carryin g an empty children's dresser. - He states that he got up after the fal l and he was able to continue with helping in the move. - Increased stiffness and soreness devel oped post-fall, leading to the use of muscle relaxants. - No neurological deficits or changes in bowel or bladder function were reported. 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 - He has pain with movement. - He denies neck pain, CP, SOB, saddle a nesthesia, numbness, tingling, or incontinence of urine or stool. Physical Exam General: Cooperative, healthy appearing, comfortable, no acute distress and well developed Orientation: Patient oriented x3 Limitations: No limitations Head: Normal to inspection Neck: Normal visual inspection, full ROM, no neck pain Respiratory: Normal respiratory effort and able to speak in complete sentences, no shortness of breath Skin: No rashes or lesions noted, no bruising observed Neuro: Patient oriented x3, CN 2-12 intact, gait normal Back/spine: Tenderness in the tailbone area, no TTP cervical, thoracic or lumbar spine, no numbness or tingling noted Extremities: Negative SLR noted. Strength is 5/5 on the LE bilaterally. Patient was informed and verbally consented to the use of an ambient scribe for clinic note documentation during this visit. [facility] Social History Patient Tobacco Use Status: Never used Tobacco Review of Systems Const All systems reviewed & are unremarkable except as noted in HPI and below Physical Exam Vital Signs: Last Vital Signs Temp 98.4 F 10/25/24 11:17 Pulse 71 10/25/24 11:17 BP 132/84 10/25/24 11:17 Pulse Ox 97 10/25/24 11:17 Oxygen Delivery Method Room Air 10/25/24 11:17 BMI result Body Mass Index 44.1 Assessment & Plan Assessment & Plan (1) Fall: Code(s): W19.XXXA - Unspecified fall, initial encounter Qualifiers: Encounter type: initial encounter Qualified Code(s): W19.XXXA - Unspecified fall, initial encounter (2) Back pain: Code(s): M54.9 - Dorsalgia, unspecified Qualifiers: Back pain location: low back pain Chronicity: acute Back pain laterality: bilateral Sciatica presence: without sciatica Qualified Code(s): M54.50 - Low back pain, unspecified Plan Most likely contusions or strain after a fall down stairs plan - rest, heat and/or ice to the area - activities as tolerated - offered him an x-ray and he declined at this time - Prescribed cyclobenzaprine for muscle relaxation, with an increase in dosage to 10 mg due to the age of previous medication. - Advised use of a heating pad and avoidance of heavy lifting to aid recovery. - Provided a medical note for work absence until Friday to allow for recovery. Medications: New cyclobenzaprine 10 mg (2 x 5 mg) PO Q8H PRN 20 tabs 0RF Muscle Spasm naproxen 500 mg PO Q12H PRN 20 tabs 0RF pain 7 days Coding Level of Care Code Est Pt Level 3 (34714) Diagnoses Fall, initial encounter W19.XXXA Encounter type: initial encounter Acute bilateral low back pain without sciatica M54.50 Back pain location: low back pain Chronicity: acute Back pain laterality: bilateral Sciatica presence: without sciatica
[2024-10-25 11:17] VITALS: BP 132/84; PULSE 71; TEMP 36.9; O2SAT 97; BMI 44.1
--- OUTSIDE RECORDS SUMMARY | 2024-10-25 12:44 | XMS_ITS | Clinical Summary ---
Author Organization [facility] Facility Address [address] [place] [address] Care Team Providers Care Laborer Pipeline Name Role Phone Unavailable Primary Care Provider [...] of 1 - PCV) 020 Influenza Vaccine (#1) 2024 Insurance [employer] Commercial
--- OUTSIDE RECORDS SUMMARY | 2024-10-25 12:44 | XMS_ITS | Clinical Summary ---
Author Organization [facility] [address] [place] [address] [place] [address] Phone Care Team Providers Care Internal Grinder Tender Name Role Phone Vahid Vargas MD Primary Care Provider [phone] Allergies No known active allergies Medications omeprazole (PriLOSEC) [address] capsule TAKE 1 CAPSULE BY MOUTH EVERY DAY 90 capsule 1 06/19/19 25 Active amLODIPine (NORVASC) 10 mg tablet TAKE 1 TABLET BY MOUTH EVERY DAY 90 tablet 1 06/19/19 25 Active sildenafiL (VIAGRA) 100 mg tablet TAKE 1 TABLET BY MOUTH DAILY NEEDED FOR ERECTILE DYSFUNCTION (NOT TO EXCEED 1 DOSE PER 24/HRS). 6 tablet 1 06/22/19 25 Active topiramate (Topamax) 100 mg tabletIndicati ons:Class 3 severe obesity due to excess calories with serious comorbidity and body mass index (BMI) of 45.0 to 49.9 in adult (CMS/HCC V24, CMS/HCC V28) Take 1 tablet (100 mg total) by mouth at bedtime. 30 each 1 09/09/19 25 11/07/ 025 Active lisinopriL (PRINIVIL,ZEST RIL) 10 mg tablet TAKE 1 TABLET BY MOUTH EVERYDAY AT BEDTIME 30 tablet 10/01/19 25 Active phentermine 37.5 mg capsuleIndicat ions:Class 3 severe obesity due to excess calories with serious comorbidity and body mass index (BMI) of 45.0 to 49.9 in adult (CMS/HCC V24, CMS/HCC V28) Take 1 capsule (37.5 mg total) by mouth 1 (one) time each day before breakfast. Max Daily Amount: 37.5 mg 30 each 2 10/13/19 25 025 Active atorvastatin (LIPITOR) 10 mg tablet TAKE 1 TABLET BY MOUTH EVERY DAY 90 tablet 1 10/15/19 25 Active atorvastatin (LIPITOR) 10 mg tablet Take 1 Tablet by mouth daily. 09/03/19 24 025 Discontinued lisinopriL (PRINIVIL,ZEST RIL) 10 mg tablet TAKE 1 TABLET BY MOUTH EVERYDAY AT BEDTIME 90 tablet 1 03/25/19 25 025 Discontinued phentermine 37.5 mg capsuleIndicat ions:Class 3 severe obesity due to excess calories with serious comorbidity and body mass index (BMI) of 45.0 to 49.9 in adult (CMS/[facility] V24, CMS/[facility] V28) Take 1 capsule (37.5 mg total) by mouth 1 (one) time each day before breakfast. Max Daily Amount: 37.5 mg 30 each 09/09/19 25 025 Discontinued(R caden) Active Problems Problem Noted Date Diagnosed Date Dyslipidemia 11/14/2023 HTN (hypertension) 11/14/2023 Morbid obesity with BMI of 4 5.0-49.9, adult ([facility] V24, [facility] V28) 11/14/2023 Mass of skin of left [...] 88% or bellow Last Assessment & Plan: [facility] [place]: Sent CPAP 4-20cm H2O Ordered treatment study to evluate if needs step up therepy due to oxygenation. Gastroesophageal reflux disease 06/10/2019 Anxiety 06/10/2019 Deviated septum 06/10/2019 Umbilical hernia 10/01/2011 Encounters Date Type Department Care Team Description 10/22/2024 11:30 AM EDT Office Visit Adult Medicine [address] [phone] Benito Burroughs PA Hypertension, unspecified type (Primary Dx); Dyslipidemia; Abdominal wall bulge 10/19/2024 Telephone Adult Medicine [address] [phone] Vahid Vargas MD 10/12/2024 2:45 PM EDT Office Visit Bariatric Surgery - [address] [place] [address] Christina Bateman MD Class 3 severe obesity due to excess calories with serious comorbidity and body mass index (BMI) of 45.0 to 49.9 in adult (CMS/HCC V24, CMS/HCC V28) (Primary Dx) 10/12/2024 Telephone Adult Medicine [address] [phone] Vahid Vargas MD from Last 3 Months Immunizations Name Administration Dates Next Due Diptheria & Tetanus, 6wks to less than 7yo 06/11 Influenza trivalent, with pr eservative (Fluzone; Afluria) 6mo and older 10/19/2010 Tdap Tetanus diptheria acell ular pertussis (Boostrix; Adacel) 7yo and older 11/18/2013,10/19/2010 Surgical History Surgery Date Site/Laterality Comments SHOULDER SURGERY Left PROCEDURE: [place] UNLISTED PROCEDURE SHOULDER; COMMENT: rotator cuff HERNIA [...] F) 10/22/2024 11:29 AM EDT Respiratory Rate 20 06/16/2024 1:47 PM EDT Oxygen Saturation 97% 10/22/2024 11:29 AM EDT Inhaled Oxygen Concentration - - Weight 141 kg (311 lb 3.2 oz) 10/22/2024 11:29 A M EDT Height 177.8 cm (5' 10 ) 10/22/2024 11:29 AM EDT Body Mass Index 44.65 10/22/2024 11:29 AM EDT Plan of Treatment Upcoming Encounters Date Type Department Care Team (Late st Contact Info) Description 10/26/2024 9:45 AM EDT Consult General Surgery - [place] [address] [facility] [address] [place] [address] Pablo Rust MD [address] [place] [phone] 04/19/2025 1:00 PM EDT Office Visit Bariatric Surgery [address] [place] [address] Christina Bateman MD [address] [place] [phone] Health Maintenance Due Date Last Done Comments Hepatitis B Vaccines (1 of 3 - 19+ 3-dose series) 1988 Pneumococcal Vaccine: 50+ Years (1 of 1 - PCV) 05/13/2019 Zoster Vaccines (1 of 2) 05/13/2019 Social Influencers of Health Screening 01/19/2022 COVID-19 Vaccine (3 - season) 2024 01/03/2021, 12/09/2020 Influenza Vaccine (#1) 2024 5, 11/18/2013, 10/19/2010 Hypertension/CHF/CAD Annual BMP Blood Test 10/22/2025 10/22/2024, 09/03/2023, 09/03/2023 Cholesterol Screening (Lipid Panel) 10/22/2029 10/22/2024, 09/03/2023, 09/03/2023 Colorectal Cancer Screening: Colonoscopy 09/23/2032 09/23/2022 DTaP,Tdap,and Td Vaccines (5 - Td or Tdap) 04/14/2034 04/14/2024, 11/18/2013, 10/19/2010, Additional history exists HIV Screening Completed 02/24/2019 Hepatitis C Screening Completed 02/24/2019 Depression Screening Completed 10/19/2024 HIB Vaccines Aged Out No longer eligi [...] Procedure Name Priority Date/Time Associated Diagnosis Comments LIPID PANEL WITH REFLEX TO DIRECT LDL Routine 10/22/2024 12:17 PM EDT Dyslipidemia COMPREHENSIVE METABOLIC PANEL Routine 10/22/2024 12:17 PM EDT Hypertension, unspecified type Dyslipidemia COLONOSCOPY Routine 09/23/2022 HEPATITIS C SCREENING Routine 02/24/2019 HIV SCREENING Routine 02/24/2019 from Last 3 Months or Most Recently Relevant to Health Maintenance Results * (ABNORMAL) Lipid panel with reflex to direct LDL (10/22/2024 12:17 PM EDT) Cholesterol 134 0 - 200 mg/dL LAB CHEMISTRY METHOD 10/22/2024 3:35 PM EDT [facility] Triglycerides 169(H) 0 - 150 mg/dL LAB CHEMISTRY METHOD 10/22/2024 3:35 PM EDT [facility] HDL 40 >=40 mg/dL LAB CHEMISTRY METHOD 10/22/2024 3:35 PM T [facility] LDL Calculated 60 0 - 100 mg/dL LAB CHEMISTRY METHOD 10/22/2024 3:35 PM EDT [facility] Comment:Estimated LDL Calcul ated using equation: Total cholesterol - HDL cholesterol - (Triglycerides/5) VLDL Cholesterol Benito 33.8 mg/dL LAB CHEMISTRY METHOD 10/22/2024 3:35 PM EDT [facility] Non HDL Chol. (LDL+VLDL) 94 <145 mg/dL LAB CHEMISTRY METHOD 10/22/2024 3:35 PM T [facility] Chol/HDL Ratio 3.4 0.0 - 4.4 LAB CHEMISTRY METHOD 10/22/2024 3:35 PM [facility] Blood Venous blood specimen / Unknown Venipuncture / Unknown 10/22/2024 12:17 PM EDT 10/22/2024 12:17 PM EDT Benito LOPEZ LAB BLOOD ORDERABLES Fi nal Result [facility] [address] [place] [address], * Comprehensive metabolic panel (10/22/2024 12:17 PM EDT) Sodium 141 133 - 145 mmol/L LAB CHEMISTRY METHOD 10/22/2024 3:34 PM [facility] Potassium 4.0 3.5 - 5.5 mmol/L LAB CHEMISTRY METHOD 10/22/2024 3:34 PM [facility] Chloride 109 96 - 110 mmol/L LAB CHEMISTRY METHOD 10/22/2024 3:34 PM [facility] CO2 26 21 - 32 mmol/L LAB CHEMISTRY METHOD 10/22/2024 3:34 PM [facility] Anion Gap 6 3 - 11 LAB CHEMISTRY METHOD 10/22/2024 3:34 PM [facility] Glucose 94 70 - 100 mg/dL LAB CHEMISTRY METHOD 10/22/2024 3:34 PM [facility] BUN 24 5 - 25 mg/dL LAB CHEMISTRY METHOD 10/22/2024 3:34 PM [facility] Creatinine 1.23 0.70 - 1.30 mg/dL LAB CHEMISTRY METHOD [facility]24 [facility] 69 >=60 mL/min/1. 73m2 LAB CHEMISTRY METHOD 10/22/2024 3:34 PM [facility] Comment:Calculation based on the Chronic Kidney Disease Epidemiology Collaboration (CKD-EPI) equation refit without adjustment for race. BUN/Creatinine Ratio 19.5 LAB CHEMISTRY METHOD 10/22/2024 3:34 PM [facility] Calcium 9.2 8.5 - 10.5 mg/dL LAB CHEMISTRY METHOD 10/22/2024 3:34 PM [facility] AST (SGOT) 14 10 - 42 unit/L LAB CHEMISTRY METHOD 10/22/2024 3:34 PM EDT [facility] ALT (SGPT) 36 10 - 60 unit/L LAB CHEMISTRY METHOD 10/22/2024 3:34 PM EDT [facility] Alkaline Phosphatase 107 42 - 121 unit/L LAB CHEMISTRY METHOD 10/22/2024 3:34 PM EDT [facility] Total Protein 7.3 6.0 - 8.0 g/dL LAB CHEMISTRY METHOD 10/22/2024 3:34 PM EDT [facility] Albumin 4.3 3.2 - 5.0 g/dL LAB CHEMISTRY METHOD 10/22/2024 3:34 PM EDT [facility] Total Bilirubin 0.8 0.0 - 1.4 mg/dL LAB CHEMISTRY METHOD 10/22/2024 3:34 PM EDT [facility] Blood Venous blood specimen / Unknown Venipuncture / Unknown 10/22/2024 12:17 PM EDT 10/22/2024 12:17 PM EDT Benito LOPEZ LAB BLOOD ORDERABLES Fi nal Result [facility] [address] [place] [address], * Colonoscopy (09/23/2022) Colonoscopy NORMAL ABSTRACTED Anatomical Region Laterality Modality Other Historical Provider HEALTH MAINTENANCE Final Result * HIV Screening (02/24/2019) Pathologist [facility] HIV Screening ABSTRACTED [facility] Provider HEALTH MAINTENANCE Final Result * Hepatitis C Screening (02/24/2019) Pathologist [facility] Hepatitis C Screening ABSTRACTED [facility] Provider HEALTH MAINTENANCE Final Result from Last 3 Months or Most Recently Relevant to Health Maintenance Insurance [employer] Care Teams Internal Grinder Tender Relationship Specialty Start Date End Date Vahid Vargas MD [address] [place] [phone] PCP - General Internal Medicine 08/28/20
--- OUTSIDE RECORDS SUMMARY | 2024-10-25 12:44 | XMS_ITS | Clinical Summary ---
Author Organization [facility] Address [address] [place] [address] Care Team Providers Care Coal Pulverizing Operator Name Role Phone Ann-Marie Gross MD Primary Care Provider [phone] Social History Tobacco Use Types Packs/Day Years [...] Shingrix-Zoster Vaccine (1 o f 2) 05/13/2019 DTap / Tdap / Td (4 - Td or Tdap) 11/19/2023 11/18/2013, 10/19/2010, 06/12/1999 Influenza Vaccine (#1) 2024 5, 11/18/2013, 10/19/2010 Pneumococcal Vaccine Aged Out No long er eligible based on patient's age to complete this topic RSV Ped < 20 months Aged Out No longe r eligible based on patient's age to complete this topic Care Teams Coal Pulverizing Operator Relationship Specialty Start Date End Date Ann-Marie Gross MD PCP - General Internal Medicine 06/20/20
== END 2024-10-25 12:09 | disposition home or self-care (01) ==
PROVIDERS: PCP Internal Medicine; Visit Provider Physician Assistant Medical
DX: M54.50 Low back pain, unspecified (principal); W19.XXXA Unspecified fall, initial encounter

== ENCOUNTER → 2024-12-21 08:18 | Outpatient (BNVA) | payer OTHER, SELFPAY | PROVIDERS: PCP Internal Medicine; Visit Provider Registered Nurse | DX: S39.012A Strain of muscle, fascia and tendon of lower back, initial encounter (principal); X50.0XXA Overexertion from strenuous movement or load, initial encounter | CPT/HCPCS: 99202 ==

== ENCOUNTER → 2024-12-24 09:24 | Outpatient (BNVA) | payer OTHER, SELFPAY | PROVIDERS: PCP Internal Medicine; Visit Provider Physician Assistant | DX: S39.012A Strain of muscle, fascia and tendon of lower back, initial encounter (principal); X50.3XXA Overexertion from repetitive movements, initial encounter; Z02.79 Encounter for issue of other medical certificate | CPT/HCPCS: 99213 ==